=== PATIENT | female | born 1980 | race Caucasian/White ===

== ENCOUNTER 2021-01-19 15:10 | Emergency (ER) | payer OTHER ==
[~2021-01-19] VITALS: Ht 160 cm; Wt 81.6 kg
[2021-01-19 15:44] VITALS: BP 134/75
[2021-01-19] MEDS ORDERED: KETOROLAC TROMETH 60MG/2ML VIAL IM ONE (15:45)
== END 2021-01-19 16:39 | disposition home or self-care (01) ==
LOC: ER 15:10
DX: M65.272 Calcific tendinitis, left ankle and foot (principal); J45.909 Unspecified asthma, uncomplicated
CPT/HCPCS: 73610; 96372; 99283; J1885

== ENCOUNTER 2021-05-01 01:11 | Emergency (ER) | payer MEDICAID, OTHER ==
[~2021-05-01] VITALS: Ht 160 cm; Wt 81.6 kg
[2021-05-01] MEDS ORDERED: methylPREDNISolone SOD SUCC 125 MG/2 ML VL IV ONE (01:30)
[2021-05-01] MEDS ORDERED: methylPREDNISolone SOD SUCC 40 MG/ML VL ONE (01:47)
[2021-05-01 02:32] LABS: Basophils # (auto) 0 10 ^3/uL (0-0.2); Basophils % (auto) 0.4 % (0.0-2.0); Eosinophils # (auto) 0 10 ^3/uL (0-0.8); Eosinophils % (auto) 0.4 % (0.0-7.0); Hemoglobin 10.5 g/dL (12.2-16.2); Lymphocytes # (auto) 1.4 10 ^3/uL (0.4-5.4); Monocytes # (auto) 0.5 10 ^3/uL (0-1.3); Neutrophils # (auto) 4.7 10 ^3/uL (1.6-8.6); Red Cell Distribution Width 17.4 % (11.8-14.3)
[2021-05-01 02:34] LABS: Hematocrit 32.2 % (36.0-46.0); Lymphocytes % (auto) 21.2 % (10.0-50.0); Mean Corpuscular Hemoglobin 21.9 pg (28.0-32.0); Mean Corpuscular Hgb Conc. 32.7 g/dL (32.0-36.0); Mean Corpuscular Volume 66.9 fL (80.0-100.0); Monocytes % (auto) 7.4 % (0.0-12.0); Neutrophils % (auto) 70.6 % (37.0-80.0); Platelet Count (auto) 473 10^3/uL (140-450); Red Blood Cells 4.81 10^6/uL (4.0-5.20); White Blood Cell 6.6 10^3/uL (4.4-10.8)
[2021-05-01 02:54] LABS: Albumin 3.4 g/dL (3.4-5.0); BUN/Creatinine Ratio 20.9; Calcium 8.6 mg/dL (8.5-10.1)
[2021-05-01 02:56] LABS: Bilirubin, Total 0.2 mg/dL (0.2-1.0); Total Protein 7.7 g/dL (6.4-8.2)
[2021-05-01 05:50] VITALS: BP 120/79
== END 2021-05-01 06:43 | disposition home or self-care (01) ==
LOC: ER 01:11
DX: J45.901 Unspecified asthma with (acute) exacerbation (principal); T17.928A Food in respiratory tract, part unspecified causing other injury, initial encounter; Z86.2 Personal history of diseases of the blood and blood-forming organs and certain disorders involving the immune mechanism; X58.XXXA Exposure to other specified factors, initial encounter; Y93.89 Activity, other specified; Y92.89 Other specified places as the place of occurrence of the external cause; Y99.8 Other external cause status
CPT/HCPCS: 36415; 71045; 80053; 83735; 85025; 93005; 96374; 99285; J2920

== ENCOUNTER 2022-09-23 07:13 | Emergency (ER) | payer MEDICAID, OTHER ==
[~2022-09-23] VITALS: Ht 160 cm; Wt 92.3 kg
[2022-09-23] MEDS ORDERED: methylPREDNISolone SOD SUCC 125 MG/2 ML VL IM ONE (11:00)
[2022-09-23] MEDS ORDERED: ALBUTEROL SULF 2.5 MG/0.5ML(0.5%) NEB SOLN NEB ONE (11:00)
[2022-09-23] MEDS ORDERED: IPRATROPIUM BROM 0.5 MG/2.5ML INH SOL NEB ONE (11:00)
[2022-09-23] MEDS ORDERED: PRED20TA2 PO (11:41)
[2022-09-23] MEDS ORDERED: PROM1SOL4 PO (11:41)
[2022-09-23] MEDS ORDERED: ALBU1.257 IN (11:41)
[2022-09-23] MEDS ORDERED: AZITTAB PO (11:41)
[2022-09-23 11:51] VITALS: BP 148/95
== END 2022-09-23 11:53 | disposition home or self-care (01) ==
LOC: ER 07:13
DX: J45.909 Unspecified asthma, uncomplicated (principal); Z86.2 Personal history of diseases of the blood and blood-forming organs and certain disorders involving the immune mechanism; Z86.73 Personal history of transient ischemic attack (TIA), and cerebral infarction without residual deficits; Z20.822 Contact with and (suspected) exposure to COVID-19
CPT/HCPCS: 36415; 71045; 87426; 87804; 94640; 96372; 99284; J2930; J7644

== ENCOUNTER 2022-11-18 15:31 | Emergency (ER) | payer MEDICAID, OTHER ==
[~2022-11-18] VITALS: Ht 157.5 cm; Wt 93.5 kg
[~2022-11-18 15:31] MED LIST: ALBU1.257 IN; AZITTAB PO; PRED20TA2 PO; PROM1SOL4 PO
[2022-11-18] MEDS ORDERED: PRED20TA2 PO (16:05)
[2022-11-18] MEDS ORDERED: AZITTAB PO (16:05)
[2022-11-18] MEDS ORDERED: ALBU108A5 IN (16:05)
[2022-11-18] MEDS ORDERED: BENZ100C19 PO (16:05)
[2022-11-18 16:32] VITALS: BP 141/72
== END 2022-11-18 16:35 | disposition home or self-care (01) ==
LOC: ER 15:31
DX: J40 Bronchitis, not specified as acute or chronic (principal); Z79.899 Other long term (current) drug therapy; Z86.73 Personal history of transient ischemic attack (TIA), and cerebral infarction without residual deficits

== ENCOUNTER 2022-11-30 02:49 | Emergency (ER) | payer MEDICAID ==
[~2022-11-30] VITALS: Ht 152.4 cm; Wt 86.5 kg
[~2022-11-30 02:49] MED LIST changes: +ALBU108A5 IN; +BENZ100C19 PO
[2022-11-30] MEDS ORDERED: IPRATROPIUM BROM 0.5 MG/2.5ML INH SOL NEB ONE (03:45)
[2022-11-30] MEDS ORDERED: ALBUTEROL SULF 2.5 MG/0.5ML(0.5%) NEB SOLN NEB ONE (03:45)
[2022-11-30] MEDS ORDERED: ALBUTEROL MEDNEB 2.5 mg/3ml NEB ONE (03:48)
[2022-11-30] MEDS ORDERED: DexAMETHasone SOD PHOS 10MG/1ML VIAL INJ IM ONE (04:00)
[2022-11-30 04:32] LABS: Albumin 3.2 g/dL (3.4-5.0); BUN/Creatinine Ratio 14.7; Calcium 8.9 mg/dL (8.5-10.1); Potassium 3.3 mmol/L (3.5-5.1)
[2022-11-30 04:34] LABS: Bilirubin, Total 0.2 mg/dL (0.2-1.0)
[2022-11-30 04:40] LABS: Eosinophils # (auto) 0.1 10 ^3/uL (0-0.8); Hemoglobin 11.6 g/dL (12.2-16.2); Mean Corpuscular Hemoglobin 23.9 pg (28.0-32.0); Monocytes # (auto) 0.5 10 ^3/uL (0-1.3); Nucleated Red Blood Cells % 0.1 %; Red Blood Cells 4.86 10^6/uL (4.0-5.20)
[2022-11-30 04:41] LABS: Basophils # (auto) 0 10 ^3/uL (0-0.2); Basophils % (auto) 0.8 % (0.0-2.0); Eosinophils % (auto) 0.9 % (0.0-7.0); Lymphocytes # (auto) 1.4 10 ^3/uL (0.4-5.4); Lymphocytes % (auto) 21.4 % (10.0-50.0); Mean Corpuscular Hgb Conc. 32.3 g/dL (32.0-36.0); Mean Corpuscular Volume 74.1 fL (80.0-100.0); Monocytes % (auto) 7.1 % (0.0-12.0); Neutrophils # (auto) 4.6 10 ^3/uL (1.6-8.6); Neutrophils % (auto) 69.8 % (37.0-80.0); Red Cell Distribution Width 15.9 % (11.8-14.3); White Blood Cell 6.5 10^3/uL (4.4-10.8)
[2022-11-30] MEDS ORDERED: ALBU108A5 IN (06:22)
[2022-11-30] MEDS ORDERED: BENZ100C19 PO (06:22)
[2022-11-30] MEDS ORDERED: PRED20TA2 PO (06:22)
[2022-11-30 06:30] VITALS: BP 136/85
[2022-11-30] MEDS ORDERED: POTASSIUM EFFERVESENT TAB 25 MEQ PO ONE (06:30)
== END 2022-11-30 06:58 | disposition home or self-care (01) ==
LOC: ER 02:49
DX: J45.901 Unspecified asthma with (acute) exacerbation (principal); J42 Unspecified chronic bronchitis; Z86.73 Personal history of transient ischemic attack (TIA), and cerebral infarction without residual deficits
CPT/HCPCS: 36415; 71045; 80053; 85025; 94640; 96372; 99284; J1100; J7644

== ENCOUNTER 2023-02-18 12:22 | Inpatient (IN) | payer MEDICAID ==
[~2023-02-18] VITALS: Ht 162.6 cm; Wt 89.1 kg
[2023-02-18 13:38] LABS: Basophils # (auto) 0.1 10 ^3/uL (0-0.2); Eosinophils # (auto) 0 10 ^3/uL (0-0.8); Eosinophils % (auto) 0.1 % (0.0-7.0); Hemoglobin 12.8 g/dL (12.2-16.2); Lymphocytes # (auto) 0.3 10 ^3/uL (0.4-5.4); Mean Corpuscular Volume 71.7 fL (80.0-100.0); Nucleated Red Blood Cells % 0.1 %; Red Cell Distribution Width 16.2 % (11.8-14.3)
[2023-02-18 13:40] LABS: Basophils % (auto) 0.8 % (0.0-2.0); Hematocrit 40.9 % (36.0-46.0); Mean Corpuscular Hemoglobin 22.4 pg (28.0-32.0); Mean Corpuscular Hgb Conc. 31.2 g/dL (32.0-36.0); Monocytes # (auto) 0.3 10 ^3/uL (0-1.3); Monocytes % (auto) 3.4 % (0.0-12.0); Neutrophils # (auto) 7.9 10 ^3/uL (1.6-8.6); Neutrophils % (auto) 92.7 % (37.0-80.0); White Blood Cell 8.5 10^3/uL (4.4-10.8)
[2023-02-18 14:09] LABS: Albumin 3.8 g/dL (3.4-5.0); Calcium 9.2 mg/dL (8.5-10.1); Potassium 3.8 mmol/L (3.5-5.1)
[2023-02-18 14:21] LABS: BUN/Creatinine Ratio 12.2 (10.0-20.0); Bilirubin, Total 0.6 mg/dL (0.2-1.0); Total Protein 7.8 g/dL (6.4-8.2)
[2023-02-18] MEDS ORDERED: SODIUM CHLORIDE 0.9% 1,000 ML IV ONE ×2 (15:30)
[2023-02-18] MEDS ORDERED: ONDANSETRON HCL 4 MG/2 ML VIAL IV ONE (15:30)
[2023-02-18] MEDS ORDERED: MORPHINE SULFATE 4 MG/ML SYR/VIAL IV ONE (15:30)
[2023-02-18] MEDS ORDERED: cefTRIAXone 1GM/50ML D5W 50 ML IV ONE (15:30)
[2023-02-18] MEDS ORDERED: metroNIDAZOLE 500MG/100ML 100 ML IV ONE (15:30)
[2023-02-18] MEDS ORDERED: HYDROcodone-ACET 5/325MG TAB PO PRN (18:30)
[2023-02-18] MEDS ORDERED: IPRATROPIUM BROM 0.5 MG/2.5ML INH SOL NEB PRN (18:45)
[2023-02-18] MEDS ORDERED: ALBUTEROL SULF 2.5 MG/0.5ML(0.5%) NEB SOLN NEB PRN (18:45)
[2023-02-18 18:54] VITALS: BP 111/71
[2023-02-18 19:49] LABS: Cholesterol 134 mg/dL (< 200)
[2023-02-18 19:52] LABS: HDL Cholesterol 35 mg/dL (40-59); LDL Cholesterol 90 mg/dL (< 100); Triglycerides 77 mg/dL (< 150)
[2023-02-18 23:35] LABS: Urine Bacteria NONE SEEN /hpf (None Seen); Urine Blood Negative /uL (Negative); Urine Mucus FEW (None Seen); Urine WBC 2 /hpf (0 - 5)
[2023-02-18 23:52] LABS: Alcohol, Urine < 3.0 mg/dL (0-10); Amphetamine Screen, Urine NEGATIVE (NEGATIVE); Barbiturate Scree,Urine NEGATIVE (NEGATIVE); Benzodiazephine Screen, Urine NEGATIVE (NEGATIVE); Cannabinoid Screen, Urine NEGATIVE (NEGATIVE); Cocaine Screen, Urine NEGATIVE (NEGATIVE); Phencyclidine Screen, Urine NEGATIVE (NEGATIVE)
[2023-02-19] LABS: Opiate Scree,Urine POSITIVE (NEGATIVE)
[2023-02-19] MEDS: FERROUS SULFATE 325mg EC TAB PO SCH ×4 (00:39→22:02)
[2023-02-19] MEDS: SODIUM CHLORIDE 0.9% 1,000 ML IV SCH ×4 (00:40→21:10)
[2023-02-19] MEDS: ONDANSETRON HCL 4 MG/2 ML VIAL IV PRN ×3 (03:09→22:02)
[2023-02-19 05:00] VITALS: BP 109/61
[2023-02-19] MEDS: MORPHINE SULFATE INJ 2 MG/ml SYRG IV PRN ×2 (06:47→14:30)
[2023-02-19 07:33] LABS: Basophils # (auto) 0 10 ^3/uL (0-0.2); Eosinophils # (auto) 0 10 ^3/uL (0-0.8); Hemoglobin 10.8 g/dL (12.2-16.2); Lymphocytes # (auto) 0.5 10 ^3/uL (0.4-5.4); Monocytes # (auto) 0.3 10 ^3/uL (0-1.3); Neutrophils # (auto) 3.6 10 ^3/uL (1.6-8.6); White Blood Cell 4.5 10^3/uL (4.4-10.8)
[2023-02-19 07:36] LABS: Basophils % (auto) 0.2 % (0.0-2.0); Eosinophils % (auto) 0.2 % (0.0-7.0); Hematocrit 33.8 % (36.0-46.0); Lymphocytes % (auto) 11.9 % (10.0-50.0); Mean Corpuscular Hemoglobin 22.9 pg (28.0-32.0); Mean Corpuscular Hgb Conc. 31.9 g/dL (32.0-36.0); Mean Corpuscular Volume 71.7 fL (80.0-100.0); Monocytes % (auto) 6.9 % (0.0-12.0); Neutrophils % (auto) 80.8 % (37.0-80.0); Red Blood Cells 4.71 10^6/uL (4.0-5.20)
[2023-02-19 07:58] LABS: Albumin 2.9 g/dL (3.4-5.0); Potassium 3.1 mmol/L (3.5-5.1)
[2023-02-19 08:09] LABS: BUN/Creatinine Ratio 8.9 (10.0-20.0); Bilirubin, Total 0.5 mg/dL (0.2-1.0); Calcium 7.7 mg/dL (8.5-10.1); Total Protein 6.6 g/dL (6.4-8.2)
[2023-02-19 09:00] VITALS: BP 117/75
[2023-02-19] MEDS: ENOXAPARIN SOD 40 MG/0.4 ML SYRINGE SC SCH (10:00)
[2023-02-19] MEDS ORDERED: cefTRIAXone 1GM/50ML D5W 50 ML IV ONE (12:00)
[2023-02-19 13:00] VITALS: BP 117/65
[2023-02-19] MEDS: metroNIDAZOLE 500MG/100ML 100 ML IV SCH ×2 (14:05→21:54)
[2023-02-19 16:45] VITALS: BP 100/60
[2023-02-19 22:00] VITALS: BP 116/67
[2023-02-19] MEDS: ACETAMINOPHEN 325 MG TAB PO PRN (22:02)
[2023-02-20] MEDS: SODIUM CHLORIDE 0.9% 1,000 ML IV SCH ×2 (03:20→10:30)
[2023-02-20 04:30] VITALS: BP 101/60
[2023-02-20] MEDS: metroNIDAZOLE 500MG/100ML 100 ML IV SCH (05:59)
[2023-02-20] MEDS: FERROUS SULFATE 325mg EC TAB PO SCH (06:01)
[2023-02-20 09:00] VITALS: BP 100/62
[2023-02-20] MEDS ORDERED: cefTRIAXone 1GM/50ML D5W 50 ML IV SCH (09:00)
[2023-02-20] MEDS: MORPHINE SULFATE INJ 2 MG/ml SYRG IV PRN (09:23)
[2023-02-20] MEDS ORDERED: LEVO500T31 PO (09:45)
[2023-02-20] MEDS ORDERED: METR500T PO (09:45)
[2023-02-20] MEDS: ENOXAPARIN SOD 40 MG/0.4 ML SYRINGE SC SCH (10:00)
[2023-02-20] MEDS: ACETAMINOPHEN 325 MG TAB PO PRN (12:36)
[2023-02-20 13:00] VITALS: BP 123/72
== END 2023-02-20 15:03 | disposition home or self-care (01) | DRG 249 ==
LOC: ER 12:22 → OVERFLOW 18:30 → WEST WING 23:34
PROVIDERS: ADMIT Registered Nurse; ATTEND Family Medicine
DX: K52.9 Noninfective gastroenteritis and colitis, unspecified (principal); R56.9 Unspecified convulsions; D50.9 Iron deficiency anemia, unspecified; J45.909 Unspecified asthma, uncomplicated; Z86.73 Personal history of transient ischemic attack (TIA), and cerebral infarction without residual deficits; Z90.49 Acquired absence of other specified parts of digestive tract; Z98.51 Tubal ligation status; Z20.822 Contact with and (suspected) exposure to COVID-19
CPT/HCPCS: 36415; 74176; 80053; 80061; 80307; 81001; 83036; 84443; 84702; 85025; 87040; 87045; 87426; 87427; 87493; 94640; 96365; 96367; 96375; G0378; J0696; J2405; J3490

== ENCOUNTER 2023-09-01 15:47 | Emergency (ER) | payer MEDICAID ==
[~2023-09-01] VITALS: Ht 160 cm; Wt 90.9 kg
[~2023-09-01 15:47] MED LIST changes: -ALBU1.257 IN; +ALBU1.258 IN; +LEVO500T31 PO; +METR500T PO
[2023-09-01 18:44] VITALS: BP 136/77; PULSE 84; RESP 16; TEMP 98; O2SAT 99
[2023-09-01] MEDS ORDERED: KETOROLAC TROMETH 60MG/2ML VIAL IM ONE (20:00)
[2023-09-01] MEDS ORDERED: CYCL-837 PO (20:04)
[2023-09-01] MEDS ORDERED: IBUP-1456 PO (20:04)
== END 2023-09-01 21:20 | disposition home or self-care (01) ==
LOC: ER 15:47
DX: M77.8 Other enthesopathies, not elsewhere classified (principal); J45.909 Unspecified asthma, uncomplicated; Z79.899 Other long term (current) drug therapy; Z86.73 Personal history of transient ischemic attack (TIA), and cerebral infarction without residual deficits; Z98.890 Other specified postprocedural states; Z90.49 Acquired absence of other specified parts of digestive tract; Z90.89 Acquired absence of other organs
CPT/HCPCS: 73030; 96372; 99283; J1885

== ENCOUNTER 2023-10-21 11:40 | Emergency (ER) | payer SELFPAY ==
[~2023-10-21] VITALS: Ht 165.1 cm; Wt 77.3 kg
[~2023-10-21 11:40] MED LIST changes: +CYCL-837 PO; +IBUP-1456 PO
[2023-10-21] MEDS ORDERED: methylPREDNISolone SOD SUCC 125 MG/2 ML VL IV ONE (12:00)
[2023-10-21] MEDS ORDERED: ALBUTEROL SULF 2.5 MG/0.5ML(0.5%) NEB SOLN HHN ONE (12:00)
[2023-10-21] MEDS ORDERED: IPRATROPIUM BROM 0.5 MG/2.5ML INH SOL HHN ONE (12:00)
[2023-10-21 13:19] LABS: Alanine Aminotransferase 15 U/L (7-40); Albumin 4.4 g/dL (3.2-4.8); Alkaline Phosphatase 87 U/L (46-116); Anion Gap 10 (5-15); Aspartate Aminotransferase 18 U/L (13-40); Bilirubin, Total 0.4 mg/dL (0.2-1.0); Calcium 8.9 mg/dL (8.5-10.1); Carbon Dioxide 21 mmol/L (20-30); Chloride 106 mmol/L (98-107); Glucose 85 mg/dL (74-106); Potassium 3.8 mmol/L (3.5-5.1); Sodium 137 mmol/L (136-145)
[2023-10-21 13:20] LABS: Total Protein 7.3 g/dL (5.7-8.2)
[2023-10-21 13:24] LABS: BUN/Creatinine Ratio 7.8 (10.0-20.0); Blood Urea Nitrogen < 5 mg/dL (9-23)
[2023-10-21 14:21] LABS: Basophils # (auto) 0 10 ^3/uL (0-0.2); Basophils % (auto) 0.6 % (0.0-2.0); Eosinophils # (auto) 0 10 ^3/uL (0-0.8); Eosinophils % (auto) 0.6 % (0.0-7.0); Hematocrit 33.8 % (36.0-46.0); Hemoglobin 9.9 g/dL (12.2-16.2); Lymphocytes # (auto) 1.2 10 ^3/uL (0.4-5.4); Lymphocytes % (auto) 15.7 % (10.0-50.0); Mean Corpuscular Hemoglobin 19.8 pg (28.0-32.0); Mean Corpuscular Hgb Conc. 29.2 g/dL (32.0-36.0); Mean Corpuscular Volume 67.9 fL (80.0-100.0); Monocytes # (auto) 0.3 10 ^3/uL (0-1.3); Monocytes % (auto) 4.1 % (0.0-12.0); Neutrophils # (auto) 6.1 10 ^3/uL (1.6-8.6); Nucleated Red Blood Cells % 0.1 %; Red Blood Cells 4.97 10^6/uL (4.0-5.20); White Blood Cell 7.7 10^3/uL (4.4-10.8)
[2023-10-21 16:00] VITALS: BP 142/87; PULSE 98; RESP 16; TEMP 98.7; O2SAT 96
[2023-10-21] MEDS ORDERED: ALBUAER3 IN (16:22)
== END 2023-10-21 14:24 | disposition home or self-care (01) ==
LOC: ER 11:40 → EDBD 11:40 → ER 14:24
DX: J45.901 Unspecified asthma with (acute) exacerbation (principal); T17.928A Food in respiratory tract, part unspecified causing other injury, initial encounter; Z86.2 Personal history of diseases of the blood and blood-forming organs and certain disorders involving the immune mechanism; Z98.890 Other specified postprocedural states; W44.F3XA Food entering into or through a natural orifice, initial encounter; Y93.89 Activity, other specified; Y92.89 Other specified places as the place of occurrence of the external cause; Y99.8 Other external cause status
CPT/HCPCS: 36415; 71045; 80053; 93005; 94640; 96374; 99285; J2930; J7644

== ENCOUNTER 2023-12-25 07:14 | Inpatient (IN) | payer MEDICAID ==
[2023-12-25] VITALS (10 sets, daily range): BP systolic 113–138; BP diastolic 74–88; PULSE 72–85; RESP 14–18; O2SAT 95–98
[~2023-12-25] VITALS: Ht 160 cm; Wt 95.5 kg
[~2023-12-25 07:14] MED LIST changes: +ALBUAER3 IN
[2023-12-25 07:34] LABS: Basophils # (auto) 0 10 ^3/uL (0-0.2); Basophils % (auto) 0.5 % (0.0-2.0); Eosinophils # (auto) 0.1 10 ^3/uL (0-0.8); Monocytes # (auto) 0.3 10 ^3/uL (0-1.3); Monocytes % (auto) 6.2 % (0.0-12.0); Neutrophils # (auto) 3.2 10 ^3/uL (1.6-8.6)
[2023-12-25 07:37] LABS: Eosinophils % (auto) 1.4 % (0.0-7.0); Hematocrit 28.8 % (36.0-46.0); Hemoglobin 8.7 g/dL (12.2-16.2); Lymphocytes # (auto) 1.5 10 ^3/uL (0.4-5.4); Lymphocytes % (auto) 29.5 % (10.0-50.0); Mean Corpuscular Hemoglobin 19.8 pg (28.0-32.0); Mean Corpuscular Hgb Conc. 30.3 g/dL (32.0-36.0); Mean Corpuscular Volume 65.4 fL (80.0-100.0); Neutrophils % (auto) 62.4 % (37.0-80.0); Nucleated Red Blood Cells % 0.2 %; Red Blood Cells 4.41 10^6/uL (4.0-5.20); Red Cell Distribution Width 19.6 % (11.8-14.3); White Blood Cell 5.1 10^3/uL (4.4-10.8)
[2023-12-25 07:48] LABS: INR 0.98 (0.9-1.15); Partial Thromboplastin Time 25.4 SEC (24.5-34.5); Prothrombin Time 10.3 sec (9.3-11.8)
[2023-12-25 08:00] LABS: Alanine Aminotransferase 18 U/L (7-40); Alkaline Phosphatase 70 U/L (46-116); Anion Gap 8 (5-15); Aspartate Aminotransferase 17 U/L (13-40); BUN/Creatinine Ratio 16.7 (10.0-20.0); Blood Urea Nitrogen 12 mg/dL (9-23); Calcium 9.1 mg/dL (8.5-10.1); Carbon Dioxide 25 mmol/L (20-30); Chloride 107 mmol/L (98-107); Glucose 101 mg/dL (74-106); Potassium 3.8 mmol/L (3.5-5.1); Sodium 140 mmol/L (136-145)
[2023-12-25 08:01] LABS: Bilirubin, Total 0.2 mg/dL (0.2-1.0); Total Protein 5.9 g/dL (5.7-8.2)
[2023-12-25] MEDS: KETOROLAC TROMETH 60MG/2ML VIAL IM ONE (08:29)
[2023-12-25] MEDS ORDERED: IBUP-1456 PO (10:27)
[2023-12-25] MEDS ORDERED: FER325T PO (10:27)
[2023-12-25] MEDS: NITROGLYCERIN 0.4 MG SL TAB SL ONE (11:07)
[2023-12-25] MEDS: MORPHINE SULFATE INJ 2 MG/ml SYRG IV ONE (11:11)
[2023-12-25] MEDS: ASPirin 81 mg TAB PO ONE ×2 (11:11→16:30)
[2023-12-25 12:02] LABS: Urine Bacteria FEW /hpf (None Seen); Urine Blood Negative /uL (Negative); Urine Clarity Clear (Clear); Urine Color Colorless (Yellow); Urine Protein, UAD Negative (Negative); Urine Specific Gravity 1.013 (1.001-1.035); Urine Urobilinogen Normal (Negative); Urine WBC 1 /hpf (0 - 5); Urine pH 6.5 (5.0-8.0)
[2023-12-25] MEDS ORDERED: MORPHINE SULFATE INJ 2 MG/ml SYRG IV PRN ×2 (12:45)
[2023-12-25] MEDS ORDERED: HYDROcodone-ACET 5/325MG TAB PO PRN (12:45)
[2023-12-25] MEDS ORDERED: NITROGLYCERIN 0.4 MG SL TAB SL PRN (12:45)
[2023-12-25] MEDS ORDERED: ACETAMINOPHEN 325 MG TAB PO PRN (12:45)
[2023-12-25] MEDS ORDERED: ONDANSETRON HCL 4 MG/2 ML VIAL IV PRN (12:45)
[2023-12-25] MEDS ORDERED: DOCUSATE SOD 100 MG CAP PO PRN (12:45)
[2023-12-25] MEDS: HEPARIN SODIUM (PORCINE) 5000 UNITS/ML 1ML VIAL IV ONE (15:30)
[2023-12-25] MEDS ORDERED: HEPARIN DRIP/D5W 100UNITS/ML 250 ML IV SCH (15:30)
[2023-12-25] MEDS: ATORVASTATIN 20 MG TAB PO ONE (16:00)
[2023-12-25] MEDS: CLOPIDOGREL 300 MG TAB PO ONE (16:00)
[2023-12-25 16:45] LABS: Basophils # (auto) 0 10 ^3/uL (0-0.2); Basophils % (auto) 0.2 % (0.0-2.0); Eosinophils # (auto) 0.1 10 ^3/uL (0-0.8); Eosinophils % (auto) 1.7 % (0.0-7.0); Hematocrit 29.4 % (36.0-46.0); Hemoglobin 8.6 g/dL (12.2-16.2); Lymphocytes # (auto) 1.6 10 ^3/uL (0.4-5.4); Lymphocytes % (auto) 33.5 % (10.0-50.0); Mean Corpuscular Hemoglobin 19.3 pg (28.0-32.0); Mean Corpuscular Hgb Conc. 29.2 g/dL (32.0-36.0); Monocytes # (auto) 0.3 10 ^3/uL (0-1.3); Monocytes % (auto) 5.3 % (0.0-12.0); Neutrophils # (auto) 2.8 10 ^3/uL (1.6-8.6); Neutrophils % (auto) 59.3 % (37.0-80.0); Red Blood Cells 4.46 10^6/uL (4.0-5.20); Red Cell Distribution Width 19.9 % (11.8-14.3); White Blood Cell 4.8 10^3/uL (4.4-10.8)
[2023-12-25] MEDS: ANGIOMAX 250 MG VIAL IV ONE (16:49)
[2023-12-25] MEDS: SODIUM CHL 0.9% 50 ML ONE (16:50)
[2023-12-25] MEDS: HEPARIN SODIUM (PORCINE) 5000 UNITS/ML 1ML VIAL ONE (16:59)
[2023-12-25] MEDS: IODIXANOL 320MG/ML 100ML BTL IV ONE (16:59)
[2023-12-25] MEDS: LIDOCAINE 2%HCL (LOCAL ANESTH.) INJ 20ML MDV ONE (16:59)
[2023-12-25] MEDS: VERAPAMIL 2.5MG/ML INJ 2ML VIAL IV ONE (16:59)
[2023-12-25 17:01] LABS: Partial Thromboplastin Time 27.1 SEC (24.5-34.5); Prothrombin Time 10.5 sec (9.3-11.8)
[2023-12-25] MEDS: MIDAZOLAM HCL 2MG/2ML 2ml VIAL (1mg/ml) ONE (17:03)
[2023-12-25] MEDS: fentaNYL CITRATE 100 MCG/2 ML VL ONE (17:03)
[2023-12-25 17:29] LABS: Anisocytosis Moderate; Platelet Estimate Increased
[2023-12-25 17:30] LABS: Hypochromia Marked; Ovalocytes FEW
[2023-12-25 17:54] LABS: Magnesium 1.9 mg/dL (1.6-2.6)
[2023-12-25 23:19] LABS: % Iron Saturation 5.3 % (15-50)
[2023-12-26] VITALS (19 sets, daily range): BP systolic 110–134; BP diastolic 66–86; PULSE 68–101; RESP 16–22; TEMP 97.3–98.2; O2SAT 95–100
[2023-12-26 06:15] LABS: Basophils # (auto) 0 10 ^3/uL (0-0.2); Basophils % (auto) 0.3 % (0.0-2.0); Eosinophils # (auto) 0.1 10 ^3/uL (0-0.8); Eosinophils % (auto) 1.6 % (0.0-7.0); Hemoglobin 8.2 g/dL (12.2-16.2); Lymphocytes # (auto) 1.4 10 ^3/uL (0.4-5.4); Mean Corpuscular Hemoglobin 19.5 pg (28.0-32.0); Monocytes # (auto) 0.3 10 ^3/uL (0-1.3); Neutrophils # (auto) 2.9 10 ^3/uL (1.6-8.6)
[2023-12-26 06:17] LABS: Hematocrit 27.5 % (36.0-46.0); Lymphocytes % (auto) 29.2 % (10.0-50.0); Mean Corpuscular Volume 65.1 fL (80.0-100.0); Monocytes % (auto) 7.3 % (0.0-12.0); Neutrophils % (auto) 61.6 % (37.0-80.0); Nucleated Red Blood Cells % 0.1 %; Red Blood Cells 4.23 10^6/uL (4.0-5.20); Red Cell Distribution Width 19.6 % (11.8-14.3); White Blood Cell 4.8 10^3/uL (4.4-10.8)
[2023-12-26 06:36] LABS: Alanine Aminotransferase 14 U/L (7-40); Albumin 3.7 g/dL (3.2-4.8); Alkaline Phosphatase 54 U/L (46-116); Anion Gap 7 (5-15); Aspartate Aminotransferase 21 U/L (13-40); BUN/Creatinine Ratio 8.8 (10.0-20.0); Bilirubin, Total 0.5 mg/dL (0.2-1.0); Blood Urea Nitrogen 6 mg/dL (9-23); Calcium 8.8 mg/dL (8.5-10.1); Carbon Dioxide 27 mmol/L (20-30); Chloride 107 mmol/L (98-107); Glucose 87 mg/dL (74-106); Potassium 3.4 mmol/L (3.5-5.1); Sodium 141 mmol/L (136-145); Total Protein 5.6 g/dL (5.7-8.2)
[2023-12-26 06:40] LABS: Platelet Estimate Increased
[2023-12-26 06:41] LABS: Anisocytosis Moderate; Hypochromia Moderate; Stomatocytes Few
[2023-12-26 06:42] LABS: Ovalocytes FEW
[2023-12-26] MEDS: IPRATROPIUM BROM 0.5 MG/2.5ML INH SOL NEB PRN (08:53)
[2023-12-26] MEDS: ALBUTEROL SULF 2.5 MG/0.5ML(0.5%) NEB SOLN NEB PRN (08:53)
[2023-12-26] MEDS: PANTOPRAZOLE 40 MG TAB PO SCH (10:00)
[2023-12-26] MEDS ORDERED: CLOPIDOGREL BISULFATE 75 MG TAB PO SCH (10:00)
[2023-12-26] MEDS ORDERED: PANTOPRAZOLE 40 MG/10 ML VIAL INJ IV SCH (10:00)
[2023-12-26] MEDS: IBUPROFEN 600 MG TAB PO PRN (10:00)
[2023-12-26] MEDS: COLCHICINE 0.6 MG CAP PO SCH (10:00)
[2023-12-26] MEDS ORDERED: ENOXAPARIN SOD 40 MG/0.4 ML SYRINGE SC SCH (10:00)
[2023-12-26] MEDS ORDERED: ASPirin-EC 81 mg tab PO SCH (10:00)
[2023-12-26] MEDS: POTASSIUM EFFERVESENT TAB 25 MEQ PO ONE (14:40)
[2023-12-26] MEDS: SODIUM CHLORIDE 0.9% 1,000 ML IV SCH (14:45)
[2023-12-26] MEDS: cefTRIAXone 1GM/50ML D5W 50 ML IV ONE (14:46)
[2023-12-26] MEDS: ACETAMINOPHEN 325 MG TAB PO PRN (21:11)
[2023-12-26] MEDS: ALBUTEROL SULF 2.5 MG/0.5ML(0.5%) NEB SOLN NEB SCH (21:56)
[2023-12-26] MEDS: IPRATROPIUM BROM 0.5 MG/2.5ML INH SOL NEB SCH (21:57)
[2023-12-26] MEDS ORDERED: ATORVASTATIN 20 MG TAB PO SCH (22:00)
[2023-12-27] VITALS (12 sets, daily range): BP systolic 110–153; BP diastolic 66–77; PULSE 84–106; RESP 16–22; TEMP 98–98.7; O2SAT 96–100
[2023-12-27 06:59] LABS: Basophils # (auto) 0 10 ^3/uL (0-0.2); Basophils % (auto) 0.2 % (0.0-2.0); Eosinophils # (auto) 0.1 10 ^3/uL (0-0.8); Hemoglobin 8.4 g/dL (12.2-16.2); Lymphocytes # (auto) 1.3 10 ^3/uL (0.4-5.4); Monocytes # (auto) 0.3 10 ^3/uL (0-1.3); Neutrophils # (auto) 2.5 10 ^3/uL (1.6-8.6)
[2023-12-27 07:01] LABS: Eosinophils % (auto) 2.4 % (0.0-7.0); Hematocrit 28.3 % (36.0-46.0); Lymphocytes % (auto) 30.8 % (10.0-50.0); Mean Corpuscular Hemoglobin 19.7 pg (28.0-32.0); Mean Corpuscular Hgb Conc. 29.8 g/dL (32.0-36.0); Mean Corpuscular Volume 66.2 fL (80.0-100.0); Monocytes % (auto) 6.4 % (0.0-12.0); Neutrophils % (auto) 60.2 % (37.0-80.0); Nucleated Red Blood Cells % 0.1 %; Red Blood Cells 4.28 10^6/uL (4.0-5.20); Red Cell Distribution Width 19.8 % (11.8-14.3); White Blood Cell 4.2 10^3/uL (4.4-10.8)
[2023-12-27 07:08] LABS: Alanine Aminotransferase 13 U/L (7-40); Albumin 3.8 g/dL (3.2-4.8); Alkaline Phosphatase 65 U/L (46-116); Anion Gap 7 (5-15); Aspartate Aminotransferase 22 U/L (13-40); BUN/Creatinine Ratio 8.5 (10.0-20.0); Blood Urea Nitrogen 6 mg/dL (9-23); Calcium 8.5 mg/dL (8.5-10.1); Carbon Dioxide 24 mmol/L (20-30); Chloride 111 mmol/L (98-107); Glucose 103 mg/dL (74-106); Potassium 4.5 mmol/L (3.5-5.1); Sodium 142 mmol/L (136-145)
[2023-12-27 07:09] LABS: Bilirubin, Total 0.3 mg/dL (0.2-1.0); Total Protein 5.8 g/dL (5.7-8.2)
[2023-12-27] MEDS: cefTRIAXone 1GM/50ML D5W 50 ML IV SCH (08:50)
[2023-12-27 09:05] LABS: Hypochromia Marked; Platelet Estimate Adequate
[2023-12-27 09:06] LABS: Anisocytosis Moderate
[2023-12-27 15:59] LABS: Erythrocyte Sedimentation Rate 12 mm/hr (0-20)
[2023-12-27] MEDS: FERROUS SULFATE 325mg EC TAB PO SCH (17:30)
[2023-12-28] MEDS: ACETAMINOPHEN 325 MG TAB PO PRN (02:44)
[2023-12-28 05:00] VITALS: BP 125/71; PULSE 78; RESP 19; TEMP 98.1; O2SAT 98
[2023-12-28 08:30] VITALS: BP 108/50; PULSE 71; RESP 18; TEMP 98.5
[2023-12-28 08:51] VITALS: BP 108/50; PULSE 71; RESP 18; TEMP 98.5; O2SAT 97
[2023-12-28 10:00] VITALS: O2SAT 97
[2023-12-28 13:10] VITALS: BP 121/42; PULSE 78; RESP 15; TEMP 97.4; O2SAT 93
[2023-12-28] MEDS ORDERED: CIPR250T3 PO (14:53)
[2023-12-28] MEDS ORDERED: COLC1TAB3 PO (14:53)
[2023-12-28] MEDS ORDERED: IBUP-1453 PO (14:53)
[2023-12-28] MEDS ORDERED: FAMO20TA10 PO (14:53)
[2023-12-28 15:00] VITALS: BP 121/42; PULSE 79; RESP 15; TEMP 97.4; O2SAT 97
[2023-12-29 09:31] LABS: Hepatitis B Surface Antigen Negative (Negative)
[2023-12-29 09:53] LABS: Hepatitis C Antibody Negative (Negative)
[2023-12-29 18:06] LABS: Dilute Prothrombin Time(dPT) 40.5 sec (0.0-47.6); PTT-LA 33.7 sec (0.0-43.5); Thrombin Time 17.4 sec (0.0-23.0); dRVVT 34.8 sec (0.0-47.0)
[2023-12-29 19:06] LABS: Lupus Interpretation Comment: (.)
== END 2023-12-28 18:35 | disposition home or self-care (01) | DRG 192 ==
LOC: ER 07:14 → OVERFLOW 12:45 → TELE-CENTR 12:45
PROVIDERS: ADMIT Nurse Practitioner Family; ATTEND Internal Medicine
PROC: 4A023N7 Measurement of Cardiac Sampling and Pressure, Left Heart, Percutaneous Approach (ICD-10-PCS; principal; 2023-12-25)
PROC: B2111ZZ Fluoroscopy of Multiple Coronary Arteries using Low Osmolar Contrast (ICD-10-PCS; 2023-12-25)
DX: I51.4 Myocarditis, unspecified (principal); I21.A1 Myocardial infarction type 2; I31.9 Disease of pericardium, unspecified; D50.9 Iron deficiency anemia, unspecified; E66.9 Obesity, unspecified; E87.6 Hypokalemia; F41.9 Anxiety disorder, unspecified; I49.3 Ventricular premature depolarization; N39.0 Urinary tract infection, site not specified; B96.1 Klebsiella pneumoniae [K. pneumoniae] as the cause of diseases classified elsewhere; Z79.1 Long term (current) use of non-steroidal anti-inflammatories (NSAID); Z79.899 Other long term (current) drug therapy; Z82.3 Family history of stroke; Z68.37 Body mass index [BMI] 37.0-37.9, adult
CPT/HCPCS: 36415; 71045; 71046; 80053; 80061; 81001; 82728; 83036; 83540; 83550; 83735; 84443; 84484; 85025; 85045; 85379; 85610; 85613; 85652; 85670; 85705; 85730; 85732; 86658; 86803; 86850; 86900; 86901; 87086; 87088; 87186; 87340; 93005; 93306; 93458; 94640; 99152; G0378; J1885; J2250; Q9967

== ENCOUNTER 2024-03-25 13:02 | Inpatient (IN) | payer MEDICAID ==
[~2024-03-25] VITALS: Ht 157.5 cm; Wt 98.3 kg
[~2024-03-25 13:02] MED LIST changes: -ALBUAER3 IN; -AZITTAB PO; -BENZ100C19 PO; +CIPR250T3 PO; +COLC1TAB3 PO; -CYCL-837 PO; +FAMO20TA10 PO; +IBUP-1453 PO; -IBUP-1456 PO; -LEVO500T31 PO; -METR500T PO; -PRED20TA2 PO; -PROM1SOL4 PO
[2024-03-25] MEDS: SODIUM CHLORIDE 0.9% 1,000 ML IVB ONE (13:15)
[2024-03-25 13:40] LABS: Basophils # (auto) 0 10 ^3/uL (0-0.2); Eosinophils # (auto) 0 10 ^3/uL (0-0.8); Eosinophils % (auto) 0.4 % (0.0-7.0); Hemoglobin 11.3 g/dL (12.2-16.2); Monocytes # (auto) 0.2 10 ^3/uL (0-1.3); Monocytes % (auto) 2.9 % (0.0-12.0)
[2024-03-25 13:45] LABS: Basophils % (auto) 0.3 % (0.0-2.0); Hematocrit 37.8 % (36.0-46.0); Lymphocytes # (auto) 0.6 10 ^3/uL (0.4-5.4); Lymphocytes % (auto) 7.9 % (10.0-50.0); Mean Corpuscular Hemoglobin 20.6 pg (28.0-32.0); Mean Corpuscular Volume 68.8 fL (80.0-100.0); Neutrophils # (auto) 6.2 10 ^3/uL (1.6-8.6); Neutrophils % (auto) 88.5 % (37.0-80.0); Nucleated Red Blood Cells % 0.1 %; Red Cell Distribution Width 24.3 % (11.8-14.3)
[2024-03-25 14:02] LABS: Alanine Aminotransferase 23 U/L (7-40); Albumin 4.3 g/dL (3.2-4.8); Alkaline Phosphatase 84 U/L (46-116); Anion Gap 4 (5-15); Aspartate Aminotransferase 20 U/L (13-40); BUN/Creatinine Ratio 9.9 (10.0-20.0); Blood Urea Nitrogen 7 mg/dL (9-23); Carbon Dioxide 25 mmol/L (20-30); Chloride 107 mmol/L (98-107); Glucose 100 mg/dL (74-106); Lipase 28 U/L (12-53); Potassium 3.6 mmol/L (3.5-5.1); Sodium 136 mmol/L (136-145)
[2024-03-25 14:03] LABS: Bilirubin, Total 0.9 mg/dL (0.2-1.0); Total Protein 7.3 g/dL (5.7-8.2)
[2024-03-25] MEDS: PROCHLORPERAZINE EDISYLATE 5 MG/ML 2ML VIAL IV ONE (15:08)
[2024-03-25] MEDS: PANTOPRAZOLE 40 MG/10 ML VIAL INJ IV ONE (15:08)
[2024-03-25 16:53] LABS: Urine Bacteria None Seen /hpf (None Seen)
[2024-03-25 17:16] LABS: Urine Blood TRACE /uL (Negative); Urine Clarity Clear (Clear); Urine Color Yellow (Yellow); Urine Mucus FEW (None Seen); Urine Protein, UAD TRACE (Negative); Urine Specific Gravity 1.029 (1.001-1.035); Urine Urobilinogen Normal (Negative); Urine WBC 23 /hpf (0 - 5); Urine pH 5.5 (5.0-9.0)
[2024-03-25] MEDS ORDERED: FERR325T20 PO (19:32)
[2024-03-25] MEDS: SODIUM CHLORIDE 0.9% 1,000 ML IV SCH (21:34)
[2024-03-25] MEDS: metroNIDAZOLE 500MG/100ML 100 ML IV SCH (22:00)
[2024-03-25] MEDS: ACETAMINOPHEN 325 MG TAB PO PRN (22:37)
[2024-03-26 02:08] VITALS: RESP 17; O2SAT 96
[2024-03-26] MEDS ORDERED: COLC1CAP (04:35)
[2024-03-26] MEDS ORDERED: FAMO-12 PO (04:35)
[2024-03-26 05:50] LABS: Basophils # (auto) 0 10 ^3/uL (0-0.2); Eosinophils # (auto) 0 10 ^3/uL (0-0.8); Eosinophils % (auto) 1.3 % (0.0-7.0); Hemoglobin 10.3 g/dL (12.2-16.2); Monocytes # (auto) 0.3 10 ^3/uL (0-1.3); Neutrophils # (auto) 1.8 10 ^3/uL (1.6-8.6)
[2024-03-26 05:53] LABS: Basophils % (auto) 0.2 % (0.0-2.0); Hematocrit 32.6 % (36.0-46.0); Lymphocytes # (auto) 0.8 10 ^3/uL (0.4-5.4); Mean Corpuscular Hemoglobin 21.7 pg (28.0-32.0); Mean Corpuscular Hgb Conc. 31.4 g/dL (32.0-36.0); Mean Corpuscular Volume 69.1 fL (80.0-100.0); Monocytes % (auto) 9.6 % (0.0-12.0); Neutrophils % (auto) 60.9 % (37.0-80.0); Red Blood Cells 4.72 10^6/uL (4.0-5.20)
[2024-03-26 05:56] LABS: Red Cell Distribution Width 24.9 % (11.8-14.3)
[2024-03-26 06:01] LABS: Calcium 8.5 mg/dL (8.7-10.4); Chloride 108 mmol/L (98-107); Sodium 140 mmol/L (136-145)
[2024-03-26 06:02] LABS: Anion Gap 7 (5-15); Carbon Dioxide 25 mmol/L (20-30)
[2024-03-26 06:07] LABS: Glucose 94 mg/dL (74-106)
[2024-03-26 06:08] LABS: BUN/Creatinine Ratio 9.2 (10.0-20.0); Blood Urea Nitrogen 6 mg/dL (9-23)
[2024-03-26 06:35] LABS: Anisocytosis Moderate; Hypochromia Moderate; Large Platelets FEW; Ovalocytes FEW; Platelet Estimate Adequate
[2024-03-26 09:22] VITALS: BP 110/78; PULSE 80; RESP 17; TEMP 97.6; O2SAT 99
[2024-03-26] MEDS: PANTOPRAZOLE 40 MG/10 ML VIAL INJ IV SCH (09:23)
[2024-03-26] MEDS: ONDANSETRON HCL 4 MG/2 ML VIAL IV PRN (09:23)
[2024-03-26] MEDS: ACETAMINOPHEN 325 MG TAB PO PRN (09:24)
[2024-03-26 10:45] VITALS: BP 110/78; PULSE 80; RESP 17; TEMP 97.6; O2SAT 99
[2024-03-26] MEDS: cefTRIAXone 1GM/50ML D5W 50 ML IV ONE (14:00)
[2024-03-26] MEDS: FAMOTIDINE 20 MG TAB PO ONE (14:00)
[2024-03-26 14:52] LABS: % Iron Saturation 5.3 % (15-50); Phosphorus 2.3 mg/dL (2.4-5.1)
[2024-03-26 14:55] LABS: Ferritin 19.4 ng/mL (10-291); Folate (Folic Acid) 17.93 ng/mL (>5.38)
[2024-03-26 15:07] LABS: Magnesium 1.9 mg/dL (1.6-2.6)
[2024-03-26 15:40] LABS: Amphetamine Screen, Urine Neg (NEGATIVE); Barbiturate Scree,Urine Neg (NEGATIVE); Benzodiazephine Screen, Urine Neg (NEGATIVE); Cocaine Screen, Urine Neg (NEGATIVE); Opiate Scree,Urine Neg (NEGATIVE); Phencyclidine Screen, Urine Neg (NEGATIVE)
[2024-03-26 15:41] LABS: Cannabinoid Screen, Urine Neg (NEGATIVE)
[2024-03-26] MEDS: POTASSIUM CHLORIDE 40 MEQ, LIDOCAINE 1% (LOCAL ANESTH.) 4 ML in SODIUM CHL 0.9% 250 ML IV ONE (16:05)
[2024-03-26 16:59] VITALS: BP 122/78; PULSE 77; RESP 17; TEMP 97.6; O2SAT 99
[2024-03-26 20:00] VITALS: PULSE 81; RESP 18; TEMP 36.4
[2024-03-26 22:57] VITALS: BP 126/80; PULSE 77; RESP 20; TEMP 97.6; O2SAT 99
[2024-03-27] VITALS (9 sets, daily range): BP systolic 104–115; BP diastolic 62–74; PULSE 67–101; RESP 17–20; TEMP 36.4–36.6; O2SAT 96–100
[2024-03-27] MEDS: metroNIDAZOLE 500 MG TAB PO SCH (06:17)
[2024-03-27 06:30] LABS: Basophils # (auto) 0 10 ^3/uL (0-0.2); Eosinophils # (auto) 0.1 10 ^3/uL (0-0.8); Hemoglobin 10.4 g/dL (12.2-16.2); Lymphocytes # (auto) 0.9 10 ^3/uL (0.4-5.4); Monocytes # (auto) 0.3 10 ^3/uL (0-1.3); Neutrophils # (auto) 1.5 10 ^3/uL (1.6-8.6)
[2024-03-27 06:33] LABS: Basophils % (auto) 0.3 % (0.0-2.0); Eosinophils % (auto) 2.8 % (0.0-7.0); Hematocrit 34.3 % (36.0-46.0); Lymphocytes % (auto) 31.9 % (10.0-50.0); Mean Corpuscular Hemoglobin 21.4 pg (28.0-32.0); Mean Corpuscular Hgb Conc. 30.5 g/dL (32.0-36.0); Mean Corpuscular Volume 70.1 fL (80.0-100.0); Monocytes % (auto) 11.6 % (0.0-12.0); Neutrophils % (auto) 53.4 % (37.0-80.0); Nucleated Red Blood Cells % 0.1 %; Red Blood Cells 4.89 10^6/uL (4.0-5.20); Red Cell Distribution Width 24.4 % (11.8-14.3); White Blood Cell 2.7 10^3/uL (4.4-10.8)
[2024-03-27 06:40] LABS: Anion Gap 4 (5-15); Carbon Dioxide 29 mmol/L (20-30); Chloride 109 mmol/L (98-107); Potassium 3.5 mmol/L (3.5-5.1); Sodium 142 mmol/L (136-145)
[2024-03-27 06:41] LABS: Calcium 9.3 mg/dL (8.5-10.1)
[2024-03-27 06:45] LABS: INR 1.02 (0.9-1.15); Prothrombin Time 10.8 sec (9.3-11.8)
[2024-03-27 06:46] LABS: Glucose 89 mg/dL (74-106)
[2024-03-27 06:52] LABS: BUN/Creatinine Ratio 6.8 (10.0-20.0); Blood Urea Nitrogen < 5 mg/dL (9-23)
[2024-03-27] MEDS: cefTRIAXone 1GM/50ML D5W 50 ML IV SCH (09:00)
[2024-03-27] MEDS: FAMOTIDINE 20 MG TAB PO SCH (10:58)
[2024-03-27 12:10] LABS: Basophils # (auto) 0 10 ^3/uL (0-0.2); Eosinophils # (auto) 0.1 10 ^3/uL (0-0.8); Mean Corpuscular Volume 69.7 fL (80.0-100.0); Monocytes # (auto) 0.3 10 ^3/uL (0-1.3); Neutrophils # (auto) 1.9 10 ^3/uL (1.6-8.6); White Blood Cell 3.3 10^3/uL (4.4-10.8)
[2024-03-27 12:13] LABS: Basophils % (auto) 0.3 % (0.0-2.0); Eosinophils % (auto) 1.9 % (0.0-7.0); Hematocrit 36.8 % (36.0-46.0); Hemoglobin 11.7 g/dL (12.2-16.2); Lymphocytes % (auto) 31.9 % (10.0-50.0); Mean Corpuscular Hemoglobin 22.1 pg (28.0-32.0); Mean Corpuscular Hgb Conc. 31.6 g/dL (32.0-36.0); Monocytes % (auto) 8.2 % (0.0-12.0); Neutrophils % (auto) 57.7 % (37.0-80.0); Nucleated Red Blood Cells % 0.2 %; Red Blood Cells 5.28 10^6/uL (4.0-5.20); Red Cell Distribution Width 24.9 % (11.8-14.3)
[2024-03-27] MEDS ORDERED: ZOFR4T PO (14:50)
[2024-03-27] MEDS ORDERED: LEVO750T40 PO (14:50)
[2024-03-27] MEDS ORDERED: PANT40T PO (14:50)
[2024-03-27] MEDS ORDERED: MET500T PO (14:50)
[2024-03-27] MEDS ORDERED: ALBUTEROL SULF 2.5 MG/0.5ML(0.5%) NEB SOLN NEB PRN (15:00)
[2024-03-27] MEDS: ALBUTEROL SULF 2.5 MG/0.5ML(0.5%) NEB SOLN NEB ONE (15:19)
[2024-03-29 09:32] LABS: Hepatitis B Surface Antigen Negative (Negative)
[2024-03-29 09:52] LABS: Hepatitis A Ab IgM Negative
[2024-03-29 09:53] LABS: Hepatitis B Core IgM Negative
[2024-03-29 09:55] LABS: Hepatitis C Antibody Negative (Negative)
== END 2024-03-27 18:50 | disposition home or self-care (01) | DRG 241 ==
LOC: ER 13:02 → OVERFLOW 19:21 → EAST 03-26 08:26
PROVIDERS: ADMIT Internal Medicine; ATTEND Internal Medicine
DX: K29.70 Gastritis, unspecified, without bleeding (principal); D50.9 Iron deficiency anemia, unspecified; N30.00 Acute cystitis without hematuria; K52.9 Noninfective gastroenteritis and colitis, unspecified; J45.909 Unspecified asthma, uncomplicated; E66.01 Morbid (severe) obesity due to excess calories; T50.4X5A Adverse effect of drugs affecting uric acid metabolism, initial encounter; K40.20 Bilateral inguinal hernia, without obstruction or gangrene, not specified as recurrent; I25.2 Old myocardial infarction; Z98.51 Tubal ligation status; Z68.39 Body mass index [BMI] 39.0-39.9, adult; Z83.3 Family history of diabetes mellitus; Z82.49 Family history of ischemic heart disease and other diseases of the circulatory system; Z80.3 Family history of malignant neoplasm of breast; Y92.89 Other specified places as the place of occurrence of the external cause
CPT/HCPCS: 36415; 74176; 76705; 80048; 80053; 80061; 80074; 80307; 81001; 81025; 82306; 82607; 82728; 82746; 83036; 83540; 83550; 83690; 83735; 84100; 84443; 85025; 85045; 85610; 85730; 87086; 87088; 87186; 93005; 94640; C9113; G0378; J2001; J2405; J3490

== ENCOUNTER 2024-10-24 15:05 | Inpatient (IN) | payer MEDICAID ==
[~2024-10-24] VITALS: Ht 160 cm; Wt 101.5 kg
[~2024-10-24 15:05] MED LIST changes: +COLC1CAP; +FAMO-12 PO; +FERR325T20 PO; +LEVO750T40 PO; +MET500T PO; +PANT40T PO; +ZOFR4T PO
--- NOTE | 2024-10-24 16:04 | ED.PDOC ---
History of Present Illness HPI Comments 44F presents to the Er w/ son and w/ prior Hx of Myocarditis, colitis, Appendectomy, and Tubal Ligation which all may be associated to the c/c of ABD pain. Pt reports on having N/V on Friday as well as not being able to fall to sleep. Pt has RUQ pain which radiates to the back "sometimes". Sone also reports that the pt had sharp left sided CP yesterday. Pt notes of a pain type of a 06/19. PMHx of Anemia, SZ, Asthma and ID. Family Hx of Breast Cancer and DM. Denies chills, fever, /D, SOB, or other associated symptom's, modifiers, or recent injuries or sick contact at this time. Chief Complaint: Abdominal Pain Time Seen by MD: 15:45 Primary Care Provider: JENNA Reviewed Notes: Nurses Notes, Medications, Allergies Allergies: Coded Allergies: NO KNOWN ALLERGIES (Unverified , 01/19/21) Home Meds Active Scripts Ondansetron Odt 4MG Tab (ZOFRAN PO) 4 Mg Tb, 4 MG PO Q8HPRN PRN for 7 Days, #21 TAB ODT TAB-DISSOLVE IN MOUTH, THEN SWALLOW Prov:[facility] 03/27/24 Pantoprazole Sodium Sesquihydr (Pantoprazole Sodium) 40 Mg Tab, 40 MG PO DAILY for 14 Days, #14 TAB [facility] 03/27/24 Metronidazole (Metronidazole) 500 Mg Tab, 500 MG PO TID for 7 Days, #21 TAB [facility] 03/27/24 Levofloxacin Hemihydrate (LEVOFLOXACIN) 750 Mg Tab, 1 TAB PO DAILY, #5 TAB [facility] 03/27/24 Famotidine (PEPCID TABLET) 20 Mg Tb, 1 TAB PO BID for 7 Days, #14 TAB 5 Refills Prov:MICHELA JOSE MD 12/28/23 Ibuprofen (Ibuprofen) 400 Mg Tab, 1 TAB PO TID for 3 Days, #9 TAB Prov:MICHELA JOSE MD 12/28/23 Colchicine (Colcrys) 0.6 Mg Tab, 1 TAB PO DAILY, #30 TAB 3 Refills Prov:MICHELA JOSE MD 12/28/23 Ciprofloxacin Hcl (Ciprofloxacin Hcl) 250 Mg Tab, 1 TAB PO BID, #14 TAB Prov:MICHELA JOSE MD 12/28/23 Albuterol Sulfate (Albuterol Sulfate Hfa) 108 Mcg/Act Aer, 108 MCG IN QID PRN, #1 AER Prov:MARLON KUMAR 11/18/22 Albuterol Sulfate (Albuterol Sulfate) 1.25 Mg/3 Ml Neb, 1.25 MG IN TID PRN, #60 INH Prov:MARLON KUMAR 09/23/22 Reported Medications Colchicine (Colchicine) 0.6 Mg Cap, 0.6 DAILY 03/26/24 Famotidine (Famotidine) 20 Mg Tab, 1 TAB PO BID 03/26/24 Ferrous Sulfate (Ferosul) 325 Mg Tab, 1 TAB PO DAILY 03/25/24 Information Source: Patient, Relative (Child) Mode of Arrival: Ambulatory Severity: Moderate Timing: Days Duration: Since onset, Days Prehospital treatment: None Past Medical History PAST MEDICAL HISTORY: Anemia, Asthma, ID, Seizures Past Medical History (Other): Myocarditis and Colitis Surgical History: Appendectomy, Tubal Ligation [employer] History: Denies all [employer] Hx Family History Family History: Reviewed,noncontributory to illness, Family hx of DM, Family hx of Cancer (Breast Cancer) Social History Smoker: Non-Smoker Alcohol: Denies ETOH Use Drugs: Denies Drug Use Lives In: Home Constitutional: denies: chills, diaphoresis, fatigue, fever, malaise, sweats, weakness, others EENTM: denies: blurred vision, double vision, ear bleeding, ear discharge, ear drainage, ear pain, ear ringing, eye pain, eye redness, hearing loss, mouth pain, mouth swelling, nasal discharge, nose bleeding, nose congestion, nose pain, photophobia, tearing, throat pain, throat swelling, voice changes, others Respiratory: denies: cough, hemoptysis, orthopnea, SOB at rest, shortness of breath, SOB with excertion, stridor, wheezing, others Cardiovascular: denies: chest pain, dizzy spells, diaphoresis, Dyspnea on exertion, edema, irregular heart beat, left arm pain, lightheadedness, palpitations, PND, syncope, others Gastrointestinal: reports: abdominal pain, nausea, vomiting; denies: abdomen distended, blood streaked bowels, constipated, diarrhea, dysphagia, difficulty swallowing, hematemesis, melena, poor appetite, poor fluid intake, rectal bleeding, rectal pain, others Genitourinary: denies: abnormal vagina bleeding, burning, dyspareunia, dysuria, flank pain, frequency, hematuria, incontinence, pain, , vagina discharge, urgency, others Neurological: denies: dizziness, fainting, headache, left sided numbness, left sided weakness, numbness, paresthesia, pre-existing deficit, right sided numbness, right sided weakness, seizure, speech problems, tingling, tremors, weakness, others Musculoskeletal: denies: back pain, gout, joint pain, joint swelling, muscle pain, muscle stiffness, neck pain, others Integumetry: denies: bruises, change in color, change in hair/nails, dryness, laceration, lesions, lumps, rash, wounds, others Allergic/Immunocompromised: denies: Difficulty Healing, Frequent Infections, Hives, Itching, others Hematologic/Lymphatic: denies: anemia, blood clots, easy bleeding, easy bruisin g, swollen glands, others Endocrine: denies: excessive hunger, excessive sweating, excessive thirst, excessive urination, flushing, intolerance to cold, intolerance to heat, unexplained weight gain, unexplained weight loss, others Psychiatric: denies: anxiety, bipolar disorder, depression, hopeless, panic disorder, schizophrenia, sleepless, suicidal, others All Other Systems: Reviewed and Negative Physical Exam General Appearance: Moderate Distress HEENT: Normal ENT Inspection, Pharynx Normal, TMs Normal Neck: Full Range of Motion, Non-Tender, Normal, Normal Inspection Respiratory: Chest Non-Tender, Lungs Clear, No Accessory Muscle Use, No Respiratory Distress, Normal Breath Sounds Cardiovascular: No Edema, No JVD, No Murmur, No Gallop, Normal Peripheral Pulses, Regular Rate/Rhythm Breast Exam: Deferred Gastrointestinal: No Organomegaly, No Pulsatile Mass, Normal Bowel Sounds, RUQ, Soft, Tenderness Genitalia: Deferred Pelvic: Deferred Rectal: Deferred Extremities: No calf tenderness, Normal capillary refill, Normal inspection, Normal range of motion, Non-tender, No pedal edema Musculoskeletal : Apperance: Normal Neurologic: Alert, check pilot II-XII nml as Tested, No Motor Deficits, Normal Affect, Normal Mood, No Sensory Deficits Cerebellar Function: Normal Reflexes: Normal Skin: Dry, Normal Color, Warm Lymphatic: No Adenopathy Was a procedure done? Was a procedure done?: No Differential Dx Considerations may include: Intractable abdominal pain, dehydration, UTI, gastroenteritis X-Ray, Labs, Meds, VS Vital Signs Date Time Temp Pulse Resp B/P (MAP) Pulse Ox O2 Delivery O2 Flow Rate FiO2 10/24/24 17:22 97 17 129/90 (103) 98 10/24/24 17:21 97 17 129/90 10/24/24 16:50 105 19 153/104 10/24/24 16:42 98.2 105 19 153/104 (120) 95 98.2 10/24/24 16:42 105 19 95 Room Air 10/24/24 15:22 97.1 113 16 141/104 (116) 98 Lab Test 10/24/24 16:20 Range/Units White Blood Count 5.2 4.4-10.8 10^3/uL Red Blood Count 5.21 H 4.0-5.20 10^6/uL Hemoglobin 14.1 12.2-16.2 g/dL Hematocrit 43.1 36.0-46.0 % Mean Corpuscular Volume 82.8 80.0-100.0 fL Mean Corpuscular Hemoglobin 27.0 L 28.0-32.0 pg Mean Corpuscular Hemoglobin Concent 32.6 32.0-36.0 g/dL Red Cell Distribution Width 14.0 11.8-14.3 % Platelet Count 320 140-450 10^3/uL Mean Platelet Volume 7.5 6.9-10.8 fL Neutrophils (%) (Auto) 75.7 37.0-80.0 % Lymphocytes (%) (Auto) 16.1 10.0-50.0 % Monocytes (%) (Auto) 6.6 0.0-12.0 % Eosinophils (%) (Auto) 1.1 0.0-7.0 % Basophils (%) (Auto) 0.5 0.0-2.0 % Neutrophils # (Auto) 3.9 1.6-8.6 10 ^3/uL Lymphocytes # (Auto) 0.8 0.4-5.4 10 ^3/uL Monocytes # (Auto) 0.3 0-1.3 10 ^3/uL Eosinophils # (Auto) 0.1 0-0.8 10 ^3/uL Basophils # (Auto) 0 0-0.2 10 ^3/uL Nucleated Red Blood Cells 0.1 % Sodium Level 141 136-145 mmol/L Potassium Level 3.6 3.5-5.1 mmol/L Chloride Level 108 H 98-107 mmol/L Carbon Dioxide Level 24 20-31 mmol/L Anion Gap 9 5-15 Blood Urea Nitrogen 7 L 9-23 mg/dL Creatinine 0.72 0.550-1.02 mg/dL Glomerular Filtration Rate Calc 106 >90 mL/min BUN/Creatinine Ratio 9.7 L 10.0-20.0 Serum Glucose 104 74-106 mg/dL Calcium Level 9.9 8.7-10.4 mg/dL Total Bilirubin 0.3 0.2-1.0 mg/dL Aspartate Amino Transferase (AST) 32 13-40 U/L Alanine Aminotransferase (ALT) 47 H 7-40 U/L Alkaline Phosphatase 108 46-116 U/L Total Protein 7.2 5.7-8.2 g/dL Albumin 4.3 3.2-4.8 g/dL Lipase 40 12-53 U/L Current Medications Medications (Trade) Dose Ordered Sig/Sreedhar Route Start Time Stop Time Status Last Admin Ondansetron HCl (Zofran) 4 mg ONCE ONCE IV 10/24/24 16:00 10/24/24 16:01 DC 10/24/24 16:44 Morphine Sulfate 4 mg ONCE ONCE IV 10/24/24 16:00 10/24/24 16:01 DC 10/24/24 16:50 Pantoprazole Sodium (Protonix) 40 mg ONCE ONCE IV 10/24/24 16:00 10/24/24 16:01 DC 10/24/24 16:44 The patient's CBC is within normal limits The chemistry panel is within normal limits The patient was given Zofran 4 mg IV push The patient was given morphine 4 mg IV push for the pain The patient was also given Protonix 40 mg IV push At this time, the patient was being admitted to the hospitalist. The patient was still having persistent abdominal pain Images Reviewed?: Images reviewed and evaluated by me Time of 1ST Reevaluation: 16:15 Reevaluation 1ST: Unchanged Patient Education/Counseling: Diagnosis, Treatment, Prognosis Family Education/Counseling: Diagnosis, Treatment, Prognosis Departure 1 Departure Time of Disposition: 18:26 Impression: Primary Impression: Intractable abdominal pain Disposition: ADMITTED INPATIENT Admit to: Med Surg Condition: Fair Critical Care Note Critical Care Time?: No Stability Stability form required: Yes Unstable for transfer: ED Physician Assesment (Clinical assesment) Heart Score Heart Score: Heart Score Response (Comments) Value History N/A 0 EKG N/A 0 Age N/A 0 Risk Factors N/A 0 Troponin N/A 0 Total 0 I personally scribed for JOSSELIN BRAY MD ([email or web address]) on 10/24/24 at 16:04. Electronically submitted by Edwar Quiles ([email or web address]). JOSSELIN BRAY MD Oct 24, 2024 16:04
--- NOTE | 2024-10-24 16:25 | DVH ---
Procedure: US GALLBLADDER Study Date and Requested Time: 10/24/2024 03:58 PM History: ruq pain Comparison: US ABDOMEN LIMITED on DOS: 03/26/24 Technique: Multiple high resolution major-scale images obtained of the right upper quadrant of the abd omen with color Doppler for evaluation of blood flow and vascularity as indicated. Findings: Liver measures 17.8 cm in length, with increased echogenicity and normal contours. No evidence of foc al hepatic lesions, intrahepatic or extrahepatic ductal dilatation. Common bile duct is not visualize d. Gallbladder unremarkable with no evidence of abnormal wall thickening, gallstones, biliary sludge, or pericholecystic fluid. Negative sonographic Cadet's sign. Pancreas is obscured by bowel gas. Right kidney measures 9.6 cm in length, with normal contours, echotexture, and cortical thickness. No evidence of hydronephrosis, calculi, cystic or solid renal lesions. Partially visualized inferior vena cava unremarkable. Impression: Mild hepatomegaly with hepatic steatosis. Common bile duct and pancreas are obscured by bowel gas.
[2024-10-24 16:42] LABS: Basophils # (auto) 0 10 ^3/uL (0-0.2); Basophils % (auto) 0.5 % (0.0-2.0); Eosinophils # (auto) 0.1 10 ^3/uL (0-0.8); Eosinophils % (auto) 1.1 % (0.0-7.0); Hematocrit 43.1 % (36.0-46.0); Hemoglobin 14.1 g/dL (12.2-16.2); Lymphocytes # (auto) 0.8 10 ^3/uL (0.4-5.4); Lymphocytes % (auto) 16.1 % (10.0-50.0); Mean Corpuscular Hgb Conc. 32.6 g/dL (32.0-36.0); Mean Corpuscular Volume 82.8 fL (80.0-100.0); Monocytes # (auto) 0.3 10 ^3/uL (0-1.3); Monocytes % (auto) 6.6 % (0.0-12.0); Neutrophils # (auto) 3.9 10 ^3/uL (1.6-8.6); Neutrophils % (auto) 75.7 % (37.0-80.0); Nucleated Red Blood Cells % 0.1 %; Platelet Count (auto) 320 10^3/uL (140-450); Red Blood Cells 5.21 10^6/uL (4.0-5.20); White Blood Cell 5.2 10^3/uL (4.4-10.8)
[2024-10-24] MEDS: PANTOPRAZOLE 40 MG/10 ML VIAL INJ IV ONE (16:44)
[2024-10-24] MEDS: ONDANSETRON HCL 4 MG/2 ML VIAL IV ONE (16:44)
[2024-10-24] MEDS: MORPHINE SULFATE 4 MG/ML SYR/VIAL IV ONE (16:50)
[2024-10-24 17:04] LABS: Albumin 4.3 g/dL (3.2-4.8); Alkaline Phosphatase 108 U/L (46-116); Anion Gap 9 (5-15); Aspartate Aminotransferase 32 U/L (13-40); BUN/Creatinine Ratio 9.7 (10.0-20.0); Calcium 9.9 mg/dL (8.7-10.4); Carbon Dioxide 24 mmol/L (20-31); Glucose 104 mg/dL (74-106); Potassium 3.6 mmol/L (3.5-5.1); Sodium 141 mmol/L (136-145)
[2024-10-24 17:05] LABS: Bilirubin, Total 0.3 mg/dL (0.2-1.0); Total Protein 7.2 g/dL (5.7-8.2)
[2024-10-24 17:09] LABS: Alanine Aminotransferase 47 U/L (7-40); Blood Urea Nitrogen 7 mg/dL (9-23); Chloride 108 mmol/L (98-107)
[2024-10-24 17:32] LABS: Lipase 40 U/L (12-53)
--- NOTE | 2024-10-24 19:58 | DVHHP2 ---
History of Present Illness Reason for Visit: Abdominal pain History of Present Illness 44-year-old female presents for evaluation of abdominal pain. Patient reports a three day history of right upper quadrant sharp abdominal pain that occasionally radiates to back. She states that yesterday she had an episode of sharp chest p ain which has subsided since then. Reports nausea with vomiting. No diarrhea or fever. Denies shortness or breath. No cardiac complaints at the moment. No other acute symptoms reported. Past Medical History Asthma, anemia and myocarditis Past Surgical History Denies Family History Noncontributory Smoke: No ALCOHOL: none Drugs: None Lives: with Family Review of Systems Review of Systems Review of systems are currently negative otherwise addressed in HPI. Allergies: Coded Allergies: NO KNOWN ALLERGIES (Unverified , 01/19/21) Medications Current Medications Medications Dose Ordered Sig/Sreedhar Route Start Time Stop Time Status Last Admin Dose Admin Pantoprazole Sodium 40 mg DAILY@0600 PO 10/25/24 06:00 UNV Acetaminophen/ Hydrocodone Bitart 1 tab Q4HP PRN PO 10/24/24 20:00 UNV Temazepam 15 mg QHSP PRN PO 10/24/24 20:00 UNV Ondansetron HCl 4 mg Q4HP PRN IV 10/24/24 20:00 UNV Acetaminophen 650 mg Q6HP PRN PO 10/24/24 20:00 UNV Morphine Sulfate 2 mg Q6HPRN PRN IV 10/24/24 20:00 UNV Exam Vital Signs Vital Signs Date Time Temp Pulse Resp B/P (MAP) Pulse Ox O2 Delivery O2 Flow Rate FiO2 10/24/24 17:22 97 17 129/90 (103) 98 10/24/24 16:42 98.2 98.2 10/24/24 16:42 Room Air Exam Gen: 44-year-old female in mild distress Skin: Warm, dry, normal color and texture, no rash. HEENT: Normocephalic atraumatic, mucous membranes moist and pink. Neck: Cervical and supraclavicular nodes normal without enlargement, trachea is midline, thyroid gland is normal without masses. Pulmonary: Clear to auscultation and percussion bilaterally. Cardiac: Regular rate and rhythm. No murmur Abdomen: Soft, right upper quadrant tenderness, nondistended, bowel sounds present all 4 quadrants, no guarding, no rigidity, no organomegaly. Extremities: No cyanosis, clubbing, no edema Neuro: Cranial nerves II through XII grossly intact, normal affect and speech, no focal motor deficits. Labs/Xrays ORDERING PHYSICIAN: JOSSELIN BRAY MD PROCEDURE(s): GBUS - GALLBLADDER REASON: ruq pain ORDER NUMBER(s): [id number], ACCESSION NUMBER(s): [id number] Procedure: US GALLBLADDER Study Date and Requested Time: 10/24/2024 03:58 PM History: ruq pain Comparison: US ABDOMEN LIMITED on DOS: 03/26/24 Technique: Multiple high resolution major-scale images obtained of the right upper quadrant of the abdomen with color Doppler for evaluation of blood flow and vascularity as indicated. Findings: Liver measures 17.8 cm in length, with increased echogenicity and normal contours. No evidence of focal hepatic lesions, intrahepatic or extrahepatic ductal dilatation. Common bile duct is not visualized. Gallbladder unremarkable with no evidence of abnormal wall thickening, gallstones, biliary sludge, or pericholecystic fluid. Negative sonographic Cadet's sign. Pancreas is obscured by bowel gas. Right kidney measures 9.6 cm in length, with normal contours, echotexture, and cortical thickness. No evidence of hydronephrosis, calculi, cystic or solid renal lesions. Partially visualized inferior vena cava unremarkable. Impression: Mild hepatomegaly with hepatic steatosis. Common bile duct and pancreas are obscured by bowel gas. Labs Test 10/24/24 16:20 Range/Units White Blood Count 5.2 4.4-10.8 10^3/uL Red Blood Count 5.21 H 4.0-5.20 10^6/uL Hemoglobin 14.1 12.2-16.2 g/dL Hematocrit 43.1 36.0-46.0 % Mean Corpuscular Volume 82.8 80.0-100.0 fL Mean Corpuscular Hemoglobin 27.0 L 28.0-32.0 pg Mean Corpuscular Hemoglobin Concent 32.6 32.0-36.0 g/dL Red Cell Distribution Width 14.0 11.8-14.3 % Platelet Count 320 140-450 10^3/uL Mean Platelet Volume 7.5 6.9-10.8 fL Neutrophils (%) (Auto) 75.7 37.0-80.0 % Lymphocytes (%) (Auto) 16.1 10.0-50.0 % Monocytes (%) (Auto) 6.6 0.0-12.0 % Eosinophils (%) (Auto) 1.1 0.0-7.0 % Basophils (%) (Auto) 0.5 0.0-2.0 % Neutrophils # (Auto) 3.9 1.6-8.6 10 ^3/uL Lymphocytes # (Auto) 0.8 0.4-5.4 10 ^3/uL Monocytes # (Auto) 0.3 0-1.3 10 ^3/uL Eosinophils # (Auto) 0.1 0-0.8 10 ^3/uL Basophils # (Auto) 0 0-0.2 10 ^3/uL Nucleated Red Blood Cells 0.1 % Sodium Level 141 136-145 mmol/L Potassium Level 3.6 3.5-5.1 mmol/L Chloride Level 108 H 98-107 mmol/L Carbon Dioxide Level 24 20-31 mmol/L Anion Gap 9 5-15 Blood Urea Nitrogen 7 L 9-23 mg/dL Creatinine 0.72 0.550-1.02 mg/dL Glomerular Filtration Rate Calc 106 >90 mL/min BUN/Creatinine Ratio 9.7 L 10.0-20.0 Serum Glucose 104 74-106 mg/dL Calcium Level 9.9 8.7-10.4 mg/dL Total Bilirubin 0.3 0.2-1.0 mg/dL Aspartate Amino Transferase (AST) 32 13-40 U/L Alanine Aminotransferase (ALT) 47 H 7-40 U/L Alkaline Phosphatase 108 46-116 U/L Total Protein 7.2 5.7-8.2 g/dL Albumin 4.3 3.2-4.8 g/dL Lipase 40 12-53 U/L Assessment/Plan Assessment/Plan Assessment Acute abdominal pain Questionable gastritis Plan Admit the patient to [facility] to the hospitalist CT abdomen pending GI consult Clear liquid diet Pain management Continue treatment per orders. Plan discussed with: Patient My Orders Orders - KALIE WHEELER AGACNP Procedure Category Date Status Time Lactic Acid W/ Reflex LAB 10/24/24 Logged Order 19:24 Ct Ab Pel Wo Con-No CT 10/24/24 Taken Oral Or Iv 19:24 * Gi Dvh Calculus Professor CONS 10/24/24 Transmitted 19:48 Pantoprazole Tablet PHA 10/25/24 Logged (Protonix Tablet) 06:00 Basic Metabolic Panel LAB 10/25/24 Verified 04:00 Troponin-I Hs LAB 10/24/24 Transmitted 19:48 Admit ADMIT 10/24/24 Transmitted 19:48 Hydrocodone-Acet PHA 10/24/24 Logged 5/325mg Tab ([place] 20:00 Temazepam (Restoril) PHA 10/24/24 Logged 20:00 Ondansetron Hcl PHA 10/24/24 Logged (Zofran) 20:00 Complete Blood Count LAB 10/25/24 Verified 04:00 Condition: Stable FRANSISCO 10/24/24 Transmitted 19:48 Acetaminophen Tablet PHA 10/24/24 Logged (Tylenol Tablet) 20:00 Clear Liq Diet DIET 10/25/24 Transmitted Breakfast Bedrest With Bathroom FRANSISCO 10/24/24 Transmitted Privileg 19:48 Morphine Sulfate PHA 10/24/24 Logged Injection 20:00 Urinalysis LAB 10/24/24 Verified 19:54 Date of Service: Oct 24, 2024 Billing Provider: KALIE WHEELER Common Visit Codes: [id number] INP/OBS CARE (MOD) KALIE WHEELER Oct 24, 2024 19:58
[2024-10-24] MEDS ORDERED: MORPHINE SULFATE INJ 2 MG/ml SYRG IV PRN (20:00)
[2024-10-24] MEDS ORDERED: TEMAZEPAM 15 MG CAP PO PRN (20:00)
[2024-10-24] MEDS ORDERED: ONDANSETRON HCL 4 MG/2 ML VIAL IV PRN (20:00)
[2024-10-24 22:57] VITALS: BP 139/80; PULSE 96; RESP 18; TEMP 98.2; O2SAT 97
[2024-10-24 22:58] VITALS: BP 139/80; PULSE 98; RESP 18; TEMP 98.2; O2SAT 97
--- NOTE | 2024-10-24 23:16 | DVH ---
Exam: CT CT AB PEL WO CON-NO ORAL OR IV History: abd. pain Comparison Study: None available at time of dictation. Technique: Multidetector spiral CT of the abdomen was performed from lung bases to pubic symphysis. Imaging was performed without IV contrast. Axial, coronal and sagittal multiplanar reformats were ob tained from the axial data set by the technologist. Radiation Dose : 1. Abdomen/Pelvis: CTDIvol 20 mGy, DLP 1069 mGy*cm. Findings: Evaluation of solid organs is limited due to lack of intravenous contrast use. Lung Bases: No acute or significant lung base finding. Normal heart size. No pleural or pericardial effusion. Liver: Hepatomegaly. Hepatic steatosis. 1 cm hypodense lesion at the hepatic dome. Gallbladder and Biliary Tree: Unremarkable Spleen: Unremarkable Pancreas: The pancreas is grossly normal in appearance. Adrenal Glands: Unremarkable Kidneys: Kidneys are grossly normal without calculi or hydronephrosis. Bladder: Grossly unremarkable for degree of distention. Bowel: The stomach is grossly normal in appearance. Small bowel and colon are normal in caliber and d istribution. The appendix is not visualized; however, no secondary findings of acute appendicitis id entified. Ascites: Absent Lymphadenopathy: No mesenteric, retroperitoneal or periportal lymphadenopathy. Abdominal Wall and Mesentery: Unremarkable. Vasculature: The visualized abdominal aorta is normal in size and caliber. Evaluation of abdominal a nd pelvic vessels is limited due to lack of intravenous contrast. Pelvic Organs: Unremarkable Musculoskeletal: No aggressive focal bony lesions, acute fractures or dislocation. IMPRESSION: No acute abdominal or pelvic findings. Hepatomegaly and hepatic steatosis. 1 cm hyperdense lesion near the hepatic dome which may represen t a hemangioma. Consider further evaluation with ultrasound if clinically indicated. END IMPRESSION:
[2024-10-25 01:00] VITALS: BP 129/82; PULSE 96; RESP 18; TEMP 98.2; O2SAT 96
[2024-10-25] MEDS ORDERED: ALBU108A5 IN (02:23)
[2024-10-25] MEDS ORDERED: BUDE0.253 IN (02:23)
[2024-10-25] MEDS ORDERED: [UNRECOGNIZED DRUG - CODE] PO (02:23)
[2024-10-25 05:00] VITALS: BP 117/76; PULSE 84; RESP 18; TEMP 98; O2SAT 97
[2024-10-25] MEDS: PANTOPRAZOLE 40 MG TAB PO SCH (06:00)
[2024-10-25] MEDS: HYDROcodone-ACET 5/325MG TAB PO PRN (06:01)
[2024-10-25 06:12] LABS: Urine Bacteria None Seen /hpf (None Seen)
[2024-10-25 06:23] LABS: Urine Blood Negative /uL (Negative); Urine Clarity Clear (Clear); Urine Color Yellow (Yellow); Urine Mucus FEW (None Seen); Urine Protein, UAD TRACE (Negative); Urine Specific Gravity 1.028 (1.001-1.035); Urine Urobilinogen Normal (Negative); Urine WBC 4 /hpf (0 - 5); Urine pH 5.5 (5.0-9.0)
[2024-10-25 06:31] LABS: Basophils # (auto) 0 10 ^3/uL (0-0.2); Basophils % (auto) 0.2 % (0.0-2.0); Eosinophils # (auto) 0 10 ^3/uL (0-0.8); Eosinophils % (auto) 1.3 % (0.0-7.0); Hematocrit 39.3 % (36.0-46.0); Hemoglobin 13.3 g/dL (12.2-16.2); Lymphocytes # (auto) 0.9 10 ^3/uL (0.4-5.4); Lymphocytes % (auto) 23.5 % (10.0-50.0); Mean Corpuscular Hemoglobin 27.8 pg (28.0-32.0); Mean Corpuscular Hgb Conc. 33.8 g/dL (32.0-36.0); Mean Corpuscular Volume 82.4 fL (80.0-100.0); Monocytes # (auto) 0.4 10 ^3/uL (0-1.3); Monocytes % (auto) 9.8 % (0.0-12.0); Neutrophils # (auto) 2.4 10 ^3/uL (1.6-8.6); Neutrophils % (auto) 65.2 % (37.0-80.0); Nucleated Red Blood Cells % 0.2 %; Platelet Count (auto) 276 10^3/uL (140-450); Red Blood Cells 4.77 10^6/uL (4.0-5.20); Red Cell Distribution Width 14.3 % (11.8-14.3); White Blood Cell 3.7 10^3/uL (4.4-10.8)
[2024-10-25 06:51] LABS: Anion Gap 7 (5-15)
[2024-10-25 06:54] LABS: Calcium 9.3 mg/dL (8.7-10.4); Carbon Dioxide 27 mmol/L (20-31); Chloride 106 mmol/L (98-107); Potassium 3.6 mmol/L (3.5-5.1); Sodium 140 mmol/L (136-145)
[2024-10-25 06:55] LABS: Blood Urea Nitrogen 10 mg/dL (9-23)
[2024-10-25 07:00] LABS: Glucose 99 mg/dL (74-106)
[2024-10-25 09:00] VITALS: BP 106/63; PULSE 82; RESP 18; TEMP 98.1; O2SAT 93
[2024-10-25 09:29] LABS: Hepatitis B Surface Antigen Negative (Negative)
[2024-10-25 09:55] LABS: Hepatitis C Antibody Negative (Negative)
--- NOTE | 2024-10-25 12:17 | DVHINCON2 ---
GI Consult Consult Note GI consult note Date of Consultation: 10/25/2024 Chief Complaint: Abdominal pain Referring Physician: Lowell NOVA H&P: 44-year-old female admitted with mostly upper abdominal pain, started five days ago Right upper quadrant worse than left upper quadrant, pain is improving now Patient also had nausea and vomiting, no hematemesis. No nausea vomiting now Patient also had loose stool, no melena or red blood in stool. No loose stool since yesterday Patient tolerating a clear liquid diet No EGD or colonoscopy in past. No history of GERD Past Medical History: Asthma, anemia and myocarditis Past Surgical History: Denies Social History: NO smoking, drinking ETOH and use of illegal drugs. Family History: Noncontributory Review of Systems: Constitutional: no fever, chill, weight loss HEENT: no eye pain, no hearing loss, no oral lesion, no scleral icterus Heart: no chest pain, no chest pressure Lung: no cough, no dyspnea with exertion Abdomen: see HPI Physical exam: General: NAD, AAOX3 Chest: lung rios clear to auscultation Heart: RRR, no murmur Abdomen: non-distended, mild RUQ tenderness to palpation, +BS Labs: Labs Test 10/25/24 06:00 10/25/24 05:45 10/24/24 20:25 10/24/24 16:20 Range/Units Urine Color Yellow Yellow Urine Clarity Clear Clear Urine pH 5.5 5.0-9.0 Urine Specific [place] 1.028 1.001-1.035 Urine Protein Trace H Negative Urine Ketones Negative Negative Urine Blood Negative Negative /uL Urine Nitrite Negative Negative Urine Bilirubin Negative Negative Urine Urobilinogen Normal Negative mg/dL Urine Leukocyte Esterase Negative Negative /uL Urine RBC 1 0 - 4 /hpf Urine WBC 4 0 - 5 /hpf Urine Squamous Epithelial Cells Few <5 /hpf Urine Bacteria None seen None Seen /hpf Urine Mucus Few None Seen Urine Glucose Normal Normal mg/dL White Blood Count 3.7 #L 4.4-10.8 10^3/uL Red Blood Count 4.77 4.0-5.20 10^6/uL Hemoglobin 13.3 12.2-16.2 g/dL Hematocrit 39.3 36.0-46.0 % Mean Corpuscular Volume 82.4 80.0-100.0 fL Mean Corpuscular Hemoglobin 27.8 L 28.0-32.0 pg Mean Corpuscular Hemoglobin Concent 33.8 32.0-36.0 g/dL Red Cell Distribution Width 14.3 11.8-14.3 % Platelet Count 276 140-450 10^3/uL Mean Platelet Volume 7.4 6.9-10.8 fL Neutrophils (%) (Auto) 65.2 37.0-80.0 % Lymphocytes (%) (Auto) 23.5 10.0-50.0 % Monocytes (%) (Auto) 9.8 0.0-12.0 % Eosinophils (%) (Auto) 1.3 0.0-7.0 % Basophils (%) (Auto) 0.2 0.0-2.0 % Neutrophils # (Auto) 2.4 1.6-8.6 10 ^3/uL Lymphocytes # (Auto) 0.9 0.4-5.4 10 ^3/uL Monocytes # (Auto) 0.4 0-1.3 10 ^3/uL Eosinophils # (Auto) 0 0-0.8 10 ^3/uL Basophils # (Auto) 0 0-0.2 10 ^3/uL Nucleated Red Blood Cells 0.2 % Sodium Level 140 136-145 mmol/L Potassium Level 3.6 3.5-5.1 mmol/L Chloride Level 106 98-107 mmol/L Carbon Dioxide Level 27 20-31 mmol/L Anion Gap 7 5-15 Blood Urea Nitrogen 10 9-23 mg/dL Creatinine 0.83 0.550-1.02 mg/dL Glomerular Filtration Rate Calc 89 >90 mL/min BUN/Creatinine Ratio 12.0 10.0-20.0 Serum Glucose 99 74-106 mg/dL Calcium Level 9.3 8.7-10.4 mg/dL Hepatitis B Surface Antigen Negative Negative Hepatitis C Antibody Negative Negative Lactic Acid Level 1.7 0.4-2.0 mmol/L Troponin I High Sensitivity < 3 L </=34 ng/L Total Bilirubin 0.3 0.2-1.0 mg/dL Aspartate Amino Transferase (AST) 32 13-40 U/L Alanine Aminotransferase (ALT) 47 H 7-40 U/L Alkaline Phosphatase 108 46-116 U/L Total Protein 7.2 5.7-8.2 g/dL Albumin 4.3 3.2-4.8 g/dL Lipase 40 12-53 U/L Imaging: CT abdomen pelvis IMPRESSION: No acute abdominal or pelvic findings. Abdominal ultrasound Impression: Mild hepatomegaly with hepatic steatosis. Assessment: Abdominal pain improving Nausea and vomiting improving Diarrhea improved Mild hepatomegaly Plan: Discussed with Dr. Puente Full liquid diet, advance as tolerated Outpatient follow-up in GI clinic in 4-6 weeks possible plan for EGD colonoscopy Discussed plan with patient, at bedside, and RN Thank you for this consult Date of Service: Oct 25, 2024 Billing Provider: ANDRAE FRAIRE Common Visit Codes: CONSULT ONLY Consultation Codes: [id number] CONSULT <45MIN ANDRAE FRAIRE Oct 25, 2024 12:17
[2024-10-25 13:00] VITALS: BP 126/75; PULSE 86; RESP 19; TEMP 97.4; O2SAT 94
[2024-10-25 16:53] VITALS: BP 114/84; PULSE 76; RESP 18; TEMP 97.7; O2SAT 9
[2024-10-25] MEDS: ACETAMINOPHEN 325 MG TAB PO PRN (17:25)
--- NOTE | 2024-10-25 19:08 | DVHPNRES ---
Progress Note Date Seen: Oct 25, 2024 Resident Creating Document: EVERETT CHRISTOPHER RESIDENT Medical Necessity Reason Pt with a Central, PICC or Fol: No Subjective Review of Systems 44 year old female with PMH of asthma, colitis, perimyocarditis, fat containing hernia and anemia presented with complaints of Right upper quadrant and epigastric pain, nausea, vomiting ,and diarrhea associated with abdominal distention since . Patient has been having and off right upper quadrant pain for last few months. She recently stopped taking OCP pills. pt mentioned improvement in the the symptoms today, has no vomiting and diarrhea mentions mild right upper quadrant and epigastric pain but still not able to tolerate any food. ROS Constitutional: No: Fever, Chills, Sweats, Weakness, Malaise, Other Eyes: No: Pain, Vision change, Conjunctivae inflammation, Eyelid inflammation, Other, Redness ENT: No: Ear pain, Ear discharge, Nose pain, Nose discharge, Nose congestion, Mouth pain, Mouth swelling, Throat pain, Throat swelling, Other Respiratory: No: Cough, Dry, Shortness of breath, SOB with excertion, Wheezing, Hemoptysis, Pleuritic Pain, Sputum, Wheezing, Other Cardiovascular: No: Chest Pain, Palpitations, Orthopnea, Paroxysmal Noc. Dyspnea, Edema, Lt Headedness, Other Gastrointestinal: Nausea, vomiting, epigastric pain, right upper quadrant pain, abdominal distention No: Nausea, Vomiting, Abdominal Pain, Diarrhea, Constipation, Melena, Hematochezia, Other Musculoskeletal: No: other, neck pain, shoulder pain, arm pain, back pain, hand pain, leg pain, foot pain Neurological:; No: Weakness, Numbness, Incoordination, Change in speech, Confusion, Seizures Objective vital signs Vital Sign Date Time Temp Pulse Resp B/P (MAP) Pulse Ox O2 Delivery O2 Flow Rate FiO2 10/25/24 16:53 97.7 76 18 114/84 (94) 9 97.7 10/25/24 08:00 Room Air* 0 21 Total Intake and Output 10/24/24 10/24/24 10/25/24 15:00 23:00 07:00 Intake Total 25 ml Balance 25 ml medications Current Medications Medications Dose Ordered Sig/Sreedhar Route Start Time Stop Time Status Last Admin Dose Admin Pantoprazole Sodium 40 mg DAILY@0600 PO 10/25/24 06:00 10/25/24 06:00 40 MG Acetaminophen/ Hydrocodone Bitart 1 tab Q4HP PRN PO 10/24/24 20:00 10/25/24 06:01 1 TAB Temazepam 15 mg QHSP PRN PO 10/24/24 20:00 Ondansetron HCl 4 mg Q4HP PRN IV 10/24/24 20:00 Acetaminophen 650 mg Q6HP PRN PO 10/24/24 20:00 10/25/24 17:25 650 MG Morphine Sulfate 2 mg Q6HPRN PRN IV 10/24/24 20:00 Examination Examination General Appearance: Alert, Oriented X3, Cooperative, No acute distress HEENT: EOMI Respiratory: Clear to auscultation, Normal air movement Cardiovascular: Regular rate, Normal S1, Normal S2 Abdominal: Right upper quadrant tenderness, epigastric tenderness, mild, generalized tenderness, no guarding, no rigidity Extremities: No cyanosis, No edema, Normal pulses, No tenderness/swelling Skin: No rashes, No breakdown Neuro: Normal speech and tone laboratory and microbiology Laboratory Tests 10/25/24 05:45 Test 10/25/24 05:45 Range/Units Serum Glucose 99 74-106 mg/dL Labs and/or images reviewed: Labs reviewed by me, Image(s) reviewed by me Problem List/Assessment/Plan Problem List/Assessment/Plan Assessment/Plan #acute abd pain associated with Diarrhea, RUQ pain, epigastric pain likely due to Acute gastroenteritis -IV fluids -pain Meds -IV ondasetron -gallbladder ultrasound revealed Mild hepatomegaly with hepatic steatosis. Common bile duct and pancreas are obscured by bowel gas. -CT abd/pelvis without contrast revealed No acute abdominal or pelvic findings. Hepatomegaly and hepatic steatosis. 1 cm hyperdense lesion near the hepatic dome which may represent a hemangioma. -advance diet as tolerated #?hemangioma liver -1 cm hypodense swelling -GI consult #Asthma -stable #Hepatomegaly with hepatic steatosis -likely due to NAFLD Discharge planning within 1-2 days. advance diet as tolerated Case discussion with Dr Huseyin Matson discussed with: Patient, Other My Orders My Orders Orders - EVERETT CHRISTOPHER RESIDENT Procedure Category Date Status Time Advance Diet As FRANSISCO 10/25/24 In Process Tolerated 16:35 Dietary Evaluation Review Comments: May offer a 2gNa Low fat Lo cholesterol diet when medcically feasible, ideally a 2 gNa low fat low cholesterol weight reducing diet Expected Outcomes/Goals: gradual weight loss Date of Service: Oct 25, 2024 Billing Provider: AUSTIN ZULUAGA MD Common Visit Codes: 98575-[id number] INP/OBS CARE(HIGH) Coding Comment Comment Attending Attestation I saw and evaluated the patient. I reviewed the residents note and agree with findings and plan as documented in the residents note except as documented below. a/p N/V/D viral vs noninfectious acute GE hemangioma 2/2 OCP use IVF zofran if QTC wnl clear liquid diet, advance as tolerated lyte replacement EVERETT CHRISTOPHER RESIDENT Oct 25, 2024 19:08 AUSTIN ZULUAGA MD Oct 25, 2024 21:43
[2024-10-25 22:00] VITALS: BP 101/65; PULSE 79; RESP 18; TEMP 97.1; O2SAT 97
[2024-10-26 01:00] VITALS: BP 110/56; PULSE 73; RESP 18; TEMP 97.9; O2SAT 98
[2024-10-26 05:00] VITALS: BP 117/58; PULSE 76; RESP 18; TEMP 97.5; O2SAT 97
[2024-10-26 06:40] LABS: Basophils # (auto) 0 10 ^3/uL (0-0.2); Basophils % (auto) 0.2 % (0.0-2.0); Eosinophils # (auto) 0.1 10 ^3/uL (0-0.8); Eosinophils % (auto) 1.8 % (0.0-7.0); Hematocrit 40.5 % (36.0-46.0); Hemoglobin 13.6 g/dL (12.2-16.2); Lymphocytes % (auto) 33.4 % (10.0-50.0); Mean Corpuscular Hemoglobin 27.6 pg (28.0-32.0); Mean Corpuscular Hgb Conc. 33.4 g/dL (32.0-36.0); Mean Corpuscular Volume 82.6 fL (80.0-100.0); Monocytes # (auto) 0.3 10 ^3/uL (0-1.3); Monocytes % (auto) 9.9 % (0.0-12.0); Neutrophils # (auto) 1.7 10 ^3/uL (1.6-8.6); Neutrophils % (auto) 54.7 % (37.0-80.0); Nucleated Red Blood Cells % 0.2 %; Platelet Count (auto) 294 10^3/uL (140-450); Red Blood Cells 4.91 10^6/uL (4.0-5.20); Red Cell Distribution Width 14.1 % (11.8-14.3); White Blood Cell 3.1 10^3/uL (4.4-10.8)
[2024-10-26 08:58] VITALS: BP 102/49; PULSE 76; RESP 17; TEMP 97.5; O2SAT 94
[2024-10-26 12:43] VITALS: BP 117/59; PULSE 71; RESP 16; TEMP 98.2; O2SAT 98
[2024-10-26 14:24] VITALS: BP 118/90; PULSE 85; RESP 18; TEMP 99; O2SAT 99
--- NOTE | 2024-10-26 18:32 | DVHDSRES ---
Discharge Summary Date of Admission Resident Creating Document: EVERETT CHRISTOPHER Oct 24, 2024 at 19:48 Date of Discharge: Oct 26, 2024 Labs/Diagnostic Data: Laboratory Results Test 10/26/24 05:27 10/25/24 06:00 10/25/24 05:45 10/24/24 20:25 White Blood Count 3.1 10^3/uL (4.4-10.8) Red Blood Count 4.91 10^6/uL (4.0-5.20) Hemoglobin 13.6 g/dL (12.2-16.2) Hematocrit 40.5 % (36.0-46.0) Mean Corpuscular Volume 82.6 fL (80.0-100.0) Mean Corpuscular Hemoglobin 27.6 pg (28.0-32.0) Mean Corpuscular Hemoglobin Concent 33.4 g/dL (32.0-36.0) Red Cell Distribution Width 14.1 % (11.8-14.3) Platelet Count 294 10^3/uL (140-450) Mean Platelet Volume 7.2 fL (6.9-10.8) Neutrophils (%) (Auto) 54.7 % (37.0-80.0) Lymphocytes (%) (Auto) 33.4 % (10.0-50.0) Monocytes (%) (Auto) 9.9 % (0.0-12.0) Eosinophils (%) (Auto) 1.8 % (0.0-7.0) Basophils (%) (Auto) 0.2 % (0.0-2.0) Neutrophils # (Auto) 1.7 10 ^3/uL (1.6-8.6) Lymphocytes # (Auto) 1.0 10 ^3/uL (0.4-5.4) Monocytes # (Auto) 0.3 10 ^3/uL (0-1.3) Eosinophils # (Auto) 0.1 10 ^3/uL (0-0.8) Basophils # (Auto) 0 10 ^3/uL (0-0.2) Nucleated Red Blood Cells 0.2 % Urine Color Yellow (Yellow) Urine Clarity Clear (Clear) Urine pH 5.5 (5.0-9.0) Urine Specific [place] 1.028 (1.001-1.035) Urine Protein Trace (Negative) Urine Ketones Negative (Negative) Urine Blood Negative /uL (Negative) Urine Nitrite Negative (Negative) Urine Bilirubin Negative (Negative) Urine Urobilinogen Normal mg/dL (Negative) Urine Leukocyte Esterase Negative /uL (Negative) Urine RBC 1 /hpf (0 - 4) Urine WBC 4 /hpf (0 - 5) Urine Squamous Epithelial Cells Few /hpf (<5) Urine Bacteria None seen /hpf (None Seen) Urine Mucus Few (None Seen) Urine Glucose Normal mg/dL (Normal) Sodium Level 140 mmol/L (136-145) Potassium Level 3.6 mmol/L (3.5-5.1) Chloride Level 106 mmol/L (98-107) Carbon Dioxide Level 27 mmol/L (20-31) Anion Gap 7 (5-15) Blood Urea Nitrogen 10 mg/dL (9-23) Creatinine 0.83 mg/dL (0.550-1.02) Glomerular Filtration Rate Calc 89 mL/min (>90) BUN/Creatinine Ratio 12.0 (10.0-20.0) Serum Glucose 99 mg/dL (74-106) Calcium Level 9.3 mg/dL (8.7-10.4) Hepatitis B Surface Antigen Negative (Negative) Hepatitis C Antibody Negative (Negative) Lactic Acid Level 1.7 mmol/L (0.4-2.0) Troponin I High Sensitivity < 3 ng/L (</=34) Test 10/24/24 16:20 Total Bilirubin 0.3 mg/dL (0.2-1.0) Aspartate Amino Transferase (AST) 32 U/L (13-40) Alanine Aminotransferase (ALT) 47 U/L (7-40) Alkaline Phosphatase 108 U/L (46-116) Total Protein 7.2 g/dL (5.7-8.2) Albumin 4.3 g/dL (3.2-4.8) Lipase 40 U/L (12-53) Other Laboratory Tests 10/26/24 05:27 10/25/24 05:45 Brief Hx & Hospital Course: 44-year-old female with past medical history of asthma, colitis, gregg- myocarditis, fat-containing abdominal hernia, anemia presented with complaints of RUQ abd pain, epigastric pain, nausea, vomiting, and diarrhea associated with Abd distension reason surgery. Patient mentioned that she has been having on and off right upper quadrant pain for last few months. She recently stopped taking OCP pills. Patient was started on IV Protonix, IV Zofran. Ultrasound revealed mild hepatomegaly with hepatic pseudocyst, CBD and pancreas obscured by bowel gas. CT abdomen reveals no acute abdominal or pelvic finding. But revealed Hepatomegaly and hepatic steatosis. 1 cm hyperdense lesion near the hepatic dome which may represent a hemangioma. GI was consulted. Patient mentioned improvement in his symptoms. Patient was initially kept on clear liquid diet which was later advanced to full liquid which she tolerated. Patient was advised to follow up with GI in 4-6 weeks and possible plan for EGD colonoscopy. In the time of discharge, patient had stable vitals, no new complaints. Discharge plan was discussed with the patient and patient was advised to follow up with PCP/DC clinic within one week and GI within 4-6 weeks. Patient was continued on home medications Condition at Discharge: Stable Final Diagnosis/Problems List gastrenteritis ?Hemangioma Asthma Hepatomegaly with hepatic steatosis Discharge Disposition: Home Discharge Instruct/Medications Diet: Regular Activity: No Restrictions, As Tolerated Follow Up/Referral: f/u with DC clinic within 1 week f/u with GI within 4-6 weeks Discharge Statement: "Patient was advised to return to the ER or call 911 if any headaches, dizziness, shortness of breath, chest pain, abdominal pain, bleeding, fevers, or worsening of medical condition. Patient was counseled about treatment plan, medications, possible side effects, patientverbalized understanding. All questions were answered to the best of my ability. This discharge took greater then 30 minutes in planning, reviewing documentation, counseling the patient, and discussing with other team members." ASSESSMENT ASSESSMENT Assessment gastrenteritis Date of Service: Oct 26, 2024 Billing Provider: AUSTIN ZULUAGA MD Common Visit Codes: 80229-KDI/OBS DISCH DAY >30min Coding Comment Comment Attending Attestation I saw and evaluated the patient. I reviewed the residents note and agree with findings and plan as documented in the residents note except as documented below. EVERETT CHRISTOPHER RESIDENT Oct 26, 2024 18:32 AUSTIN ZULUAGA MD Oct 26, 2024 22:00
== END 2024-10-26 15:30 | disposition home or self-care (01) | DRG 249 ==
LOC: ER 15:05 → OVERFLOW 19:48 → EAST 22:57
PROVIDERS: ADMIT Student in an Organized Health Care Education/Training Program; ATTEND Emergency Medicine
DX: K52.9 Noninfective gastroenteritis and colitis, unspecified (principal); K76.0 Fatty (change of) liver, not elsewhere classified; R16.0 Hepatomegaly, not elsewhere classified; R56.9 Unspecified convulsions; J45.909 Unspecified asthma, uncomplicated; D18.09 Hemangioma of other sites; D64.9 Anemia, unspecified; Z79.899 Other long term (current) drug therapy; Z80.3 Family history of malignant neoplasm of breast
CPT/HCPCS: 36415; 74176; 76705; 80048; 80053; 81001; 83605; 83690; 84484; 85025; 86803; 87340; G0378; J2405; J2470